=== PATIENT | male | born 1970 | race African-American/Black ===

== ENCOUNTER 2018-11-27 19:17 | Inpatient (IN) | payer OTHER ==
--- OUTSIDE RECORDS SUMMARY | 2018-11-27 19:19 | XMS REPORT | Clinical Summary ---
:1970 Author Organization [facility] Address [address] [place] [address] Care Team Providers Name Role Phone Bassam Marcos MD Primary Care Provider Allergies Active Allergy Reactions Severity Noted Date Comments No Known Drug Allergies 03/04/2016 Medications Medication Sig Dispensed Refills Start Date End Date Status amLODIPine (NORVASC) Take 10 mg by 0 Active 10 MG tablet mouth daily. aspirin (ECOTRIN) 81 Take 81 mg by 0 Active MG enteric coated mouth daily. tablet losartan-hydrochloroth Take 1 tablet by 0 Active iazide (HYZAAR) mouth daily. 100-12.5 mg per tablet clonIDINE HCl Take 0.2 mg by 0 Active (CATAPRES) 0.2 MG mouth daily. tablet labetalol (NORMODYNE) Take 200 mg by 0 Active 200 MG tablet mouth 2 (two) times a day. calcium acetate Take 667 mg by 0 Active (PHOSLO) 667 mg mouth 3 (three) capsule times a day with meals. Take 3 tabs with each meal Active Problems Problem Noted Date Hypertensive nephrosclerosis 03/17/2016 Social History Tobacco Use Types Packs/Day Years Used Date Former Smoker 1 Quit: 2016 Tobacco Cessation: Counseling Given: No Sex Assigned at Date Recorded Not on file Job Start Date Occupation Industry Not on file Not on file Not on file Travel History Travel Start Travel End No recent travel history available. Last Filed Vital Signs Not on file Plan of Treatment Health Maintenance Due Date Last Done Comments INFLUENZA VACCINE 05/16/2018 Results Not on fileafter 11/26/2017 Insurance Payer Benefit Plan / Group Subscriber ID Type Phone Address MEDICARE MEDICARE PART A AND B xxxxxxxxxx Medicare [place], [place]
--- OUTSIDE RECORDS SUMMARY | 2018-11-27 19:21 | XMS REPORT | Clinical Summary ---
:1970 Author Organization [facility] Address [address] [place] [address] Care Team Providers Name Role Phone Mo Knightfauzia Cardiology Julio Novak MD Gastroenterology Pcp, No Primary Care Provider Unavailable Allergies No Known Allergies Medications Medication Sig Dispensed Refills Start End Date Status Date carvedilol Take 25 mg by mouth 0 Active (COREG) 25 MG 2 (two) times daily tablet with breakfast and dinner. cloNIDine HCl Take 0.2 mg by 0 Active (CATAPRES) 0.2 MG mouth 3 (three) tablet times daily. amLODIPine Take 10 mg by mouth 0 Active (NORVASC) 10 MG daily. tablet calcium acetate Take 2,001 mg by 0 Active (PHOSLO) 667 mg mouth 3 (three) capsule times daily with meals . losartan (COZAAR) Take 100 mg by 0 Active 100 MG tablet mouth daily. aspirin 81 MG Take 1 tablet (81 90 tablet 3 11/09/19 Active chewable tablet mg total) by mouth 9 20 daily. atorvastatin Take 1 tablet (40 90 tablet 3 11/09/19 Active (LIPITOR) 40 MG mg total) by mouth 9 20 tablet nightly. hydrALAZINE Take 1 tablet (100 90 tablet 6 11/11/11/11/19 Active (APRESOLINE) 100 mg total) by mouth 9 20 MG tablet every 8 (eight) hours. clopidogrel Take 1 tablet (75 30 tablet 12 11/12/19 Active (PLAVIX) 75 mg mg total) by mouth 9 20 tablet daily. epoetin remi Inject 1 mL (10,000 1 mL 0 Active (EPOGEN,PROCRIT) Units total) 9 10,000 unit/mL subcutaneously 3 injection (three) times a week at bedtime. tamsulosin Take 1 capsule (0.4 30 capsule 1 Active (FLOMAX) 0.4 mg mg total) by mouth 9 Cap 24 hr capsule daily. valsartan Take 320 mg by 0 05/31/20 Discontinued (DIOVAN) 320 MG mouth daily. 18 tablet hydrALAZINE Take 50 mg by mouth 0 11/11/19 Discontinued (APRESOLINE) 50 3 (three) times 19 MG tablet daily. ticagrelor Take 1 tablet (90 60 tablet 3 11/09/19 Discontinued (BRILINTA) 90 mg mg total) by mouth 9 19 Tab tablet 2 (two) times daily. ticagrelor Take 1 tablet (90 60 tablet 0 11/09/19 Discontinued (BRILINTA) 90 mg mg total) by mouth 9 19 Tab tablet 2 (two) times daily. Active Problems Problem Noted Date End stage renal disease 11/08/2018 Abnormal liver diagnostic imaging 06/14/2018 Last Assessment & Plan: Recent imaging (CTA 05/17/18) showed concern for cirrhosis however inconclusive. He does not have significant risk factors for cirrhosis such as fatty liver, hepatitis exposure or extensive alcohol use. It is likely his marked ascites is from renal dysfunction however we must rule out liver etiology. Transjugular biopsy to be done as part of renal transplant workup will confirm diagnosis. Portal hypertension 05/31/2018 Last Assessment & Plan: Portal hypertension manifested by ascites. Essential hypertension, malignant 05/31/2018 Last Assessment & Plan: Patient has long standing systemic hypertension and is on multiple anti hypertensive medications. In patients with cirrhosis, with disease decompensation systemic hemodynamics change and develop low sys temic blood pressure. These patient require significant reduction or stopping of anti hypertensive medications I will recommend close monitoring of blood pressure. If systolic blood pressure < 120 consider change or holding anti hypertensive medications Pre-transplant evaluation for chronic kidney disease 03/06/2018 Last Assessment & Plan: Concern for cirrhosis. Liver biopsy today and comprehensive workup to rule out all causes of liver disease. ESRD (end stage renal disease) 03/06/2018 Last Assessment & Plan: Etiology from uncontrolled hypertension. He has been on dialysis since 2015 and is undergoing transplant workup. Encounters Date Type Specialty Care Team Description 11/16/2018 Telephone Transplant Estephania Gupta Kidney mirror maker Pre-evaluation 11/08/2018 Surgery Joel Langford, R & L CATH / CORONARY ANGIOS / PCI 11/08/2018 Hospital Encounter Cardiology Joel Langford, Abnormal liver diagnostic imaging; - MD ESRD (end stage renal disease) (HCC); 11/11/2018 Essential hypertension, malignant; Pre-transplant evaluation for chronic kidney disease; Anemia due to chronic kidney disease, on chronic dialysis (HCC); Coronary artery disease involving [place] coronary artery of [place] heart without angina pectoris; Bleeding; End stage renal disease (HCC); Status post insertion of drug-eluting stent into left anterior descending (LAD) artery for coronary artery disease; Presence of drug-eluting stent in left circumflex coronary artery; Pseudoaneurysm following procedure (HCC) 11/08/2018 Orders Only General Internal Medicine 10/18/2018 Hospital Encounter Cardiology Ariana, Pre-transplant evaluation for chronic kidney disease; Deepika Sharma II, ESRD (end stage renal disease) (HCC); Essential hypertension, malignant; Anemia of renal disease 09/24/2018 Orders Only Transplant Estephania Gupta, Pre-transplant evaluation for chronic kidney disease (Primary Dx); RN ESRD (end stage renal disease) (HCC); Essential hypertension, malignant; Anemia of renal disease 09/24/2018 Telephone Transplant Estephania Gupta Kidney mirror maker Pre-evaluation 09/19/2018 Telephone Transplant Bubba, Na Y Follow-up 08/03/2018 Telephone Transplant Estephania Gupta Kidney mirror maker Pre-evaluation 07/24/2018 Documentation Hepatology Regina Krishnamurthy MD 07/23/2018 Abstract Hepatology Juli Dominguez MA 07/05/2018 Hospital Encounter Regina Krishnamurthy Abnormal liver diagnostic imaging; MD Leda Cirrhosis of liver with ascites, unspecified hepatic cirrhosis type (HCC) 06/29/2018 Outside Orders [facility] Regina Krishnamurthy Scheduling MD Leda 06/14/2018 Office Visit Hepatology Regina Krishnamurthy Cirrhosis of liver with ascites, unspecified hepatic cirrhosis type (HCC) (Primary Dx); MD Leda Abnormal liver diagnostic imaging; ESRD (end stage renal disease) (HCC); Portal hypertension (HCC); Essential hypertension, malignant; Pre-transplant evaluation for chronic kidney disease 06/14/2018 Follow-Up Transplant Regina Krishnamurthy MD 06/14/2018 Evaluation Transplant Regina Krishnamurthy Pre-transplant MD Leda evaluation for chronic kidney disease (Primary Dx) 05/31/2018 Evaluation Transplant Nelson, Pre-transplant evaluation for chronic kidney disease (Primary Dx); Bhamidpauline ESRD (end stage renal disease) (HCC); MD Frantz Essential hypertension, malignant; Cirrhosis of liver with ascites, unspecified hepatic cirrhosis type ( HCC); Portal hypertension (HCC); Hyperlipidemia, unspecified hyperlipidemia type; Secondary hyperparathyroidism of renal origin (HCC) 05/17/2018 Hospital Encounter Cardiology Nelson, ESRD (end stage renal disease) (HCC); Bhamidpauline Pre-transplant evaluation for chronic kidney disease; MD Frantz Essential hypertension, malignant; Hyperlipidemia, unspecified hyperlipidemia type; Elevated blood sugar; Colon cancer screening 05/17/2018 Hospital Encounter Cardiology Nelson, ESRD (end stage renal disease) (HCC); Bhamidpauline Pre-transplant evaluation for chronic kidney disease; MD Frantz Essential hypertension, malignant; Hyperlipidemia, unspecified hyperlipidemia type; Elevated blood sugar; Colon cancer screening 05/17/2018 Hospital Encounter Radiology Nelson, ESRD (end stage renal disease) (HCC); Bhamidpauline Pre-transplant evaluation for chronic kidney disease; MD Frantz Essential hypertension, malignant; Hyperlipidemia, unspecified hyperlipidemia type; Elevated blood sugar; Colon cancer screening 05/17/2018 Hospital Encounter Radiology Nelson, ESRD (end stage renal disease) (HCC); Bhamidipamaite Pre-transplant evaluation for chronic kidney disease; MD Frantz Essential hypertension, malignant; Hyperlipidemia, unspecified hyperlipidemia type; Elevated blood sugar; Colon cancer screening 05/17/2018 Orders Only Lab Nelson, ESRD (end stage renal disease) (HCC); Bhamidpauline Pre-transplant evaluation for chronic kidney disease; MD Frantz Essential hypertension, malignant; Hyperlipidemia, unspecified hyperlipidemia type; Elevated blood sugar; Colon cancer screening 03/06/2018 Orders Only Transplant Nelson, ESRD (end stage renal disease) ( HCC); Hepatology Bhamidipamaite Pre-transplant evaluation for chronic kidney disease; MD Frantz Essential hypertension, malignant; Hyperlipidemia, unspecified hyperlipidemia type; Elevated blood sugar; Colon cancer screening 03/06/2018 Office Visit Transplant Nelson, ESRD (end stage renal disease) ( [facility]) (Primary Dx); Digna Pre-transplant evaluation for chronic kidney disease; MD Frantz Essential hypertension, malignant; Bertha Corral RN Hyperlipidemia, unspecified hyperlipidemia type; Elevated blood sugar; Colon cancer screening; ESRD (end stage renal disease) on dialysis ([facility]) 02/13/2018 Abstract Transplant Ryan Tillman 01/29/2018 Abstract Transplant Ryan Tillman 01/23/2018 Telephone Transplant Ryan Tillman Kidney Transplant Pre-evaluation 01/23/2018 Abstract Transplant Ryan Tillman after 11/26/2017 Family History Medical History Relation Name Comments Hypertension Father Heart disease Mother Unremarkable Sister Unremarkable Sister Relation Name Status Comments Father Alive Mother Sister Alive Sister Alive Social History Tobacco Use Types Packs/Day Years Used Date Current Some Day Smoker 0 20 Smokeless Tobacco: Never Used Comments: smokes half pack a week Alcohol Use Drinks/Week oz/Week Comments No 2014; occasional drink earlier to that Sex Assigned at Date Recorded Not on file Job Start Date Occupation Industry Not on file Not on file Not on file Travel History Travel Start Travel End No recent travel history available. Last Filed Vital Signs Vital Sign Reading Time Taken Blood Pressure 149/68 11/11/2018 11:35 AM INDUSTRIAL ORGANIZATIONAL PSYCHOLOGIST Pulse 71 11/11/2018 11:35 AM INDUSTRIAL ORGANIZATIONAL PSYCHOLOGIST Temperature 36.6 C (97.9 F) 11/11/2018 11:35 AM INDUSTRIAL ORGANIZATIONAL PSYCHOLOGIST Respiratory Rate 20 11/11/2018 11:35 AM INDUSTRIAL ORGANIZATIONAL PSYCHOLOGIST Oxygen Saturation 98% 11/11/2018 11:35 AM INDUSTRIAL ORGANIZATIONAL PSYCHOLOGIST Inhaled Oxygen Concentration 25% 11/10/2018 8:54 AM INDUSTRIAL ORGANIZATIONAL PSYCHOLOGIST Weight 97.2 kg (214 lb 5.7 oz) 11/11/2018 7:25 AM INDUSTRIAL ORGANIZATIONAL PSYCHOLOGIST Height 177.8 cm (5' 10") 11/08/2018 11:04 AM INDUSTRIAL ORGANIZATIONAL PSYCHOLOGIST Body Mass Index 30.76 11/11/2018 7:25 AM INDUSTRIAL ORGANIZATIONAL PSYCHOLOGIST Plan of Treatment Health Maintenance Due Date Last Done Comments INFLUENZA VACCINE 07/16/2018 Implants Implanted Type Area Interior Design Professional Device Shelf Model / Identifier Expiration Serial / Date Lot Synergy Otw Stent Left: BOSTON 04/29/2020 [id number] / Implanted: Qty: 1 on 11/08/2018 by Joel Langford MD [employer] / [id number] Synergy Otw Coronary Stent System Left: B[employer]ON 11/20/2018 [id number] / Implanted: Qty: 1 on 11/08/2018 by Joel Langford MD [employer] / Synergy Otw Coronary Stent System Left: B[employer]ON 04/24/2020 [id number] / Implanted: Qty: 1 on 11/08/2018 by Joel Langford MD [employer] / [id number] Synergy [place]ON 07/08/2020 [id number] / Implanted: Qty: 1 on 11/08/2018 by Joel Langford MD SCIENTIFIC / [id number] Procedures Procedure Name Priority Date/Time Associated Comments Diagnosis TRANSFUSION SERVICE 11/11/2018 5:51 REPORT - SCAN PM INDUSTRIAL ORGANIZATIONAL PSYCHOLOGIST CBC (HEMOGRAM ONLY) Routine 11/11/2018 4:27 Results for this AM INDUSTRIAL ORGANIZATIONAL PSYCHOLOGIST procedure are in the results section. BASIC METABOLIC PANEL Routine 11/11/2018 4:27 Results for this (7) AM INDUSTRIAL ORGANIZATIONAL PSYCHOLOGIST procedure are in the results section. HEMOGLOBIN AND Routine 11/10/2018 8:13 Results for this HEMATOCRIT PM INDUSTRIAL ORGANIZATIONAL PSYCHOLOGIST procedure are in the results section. ARTERIAL DOPPLER LEG, STAT 11/10/2018 1:14 Results for this RIGHT PM INDUSTRIAL ORGANIZATIONAL PSYCHOLOGIST procedure are in the results section. HEMOGLOBIN AND STAT 11/10/2018 12:35 Results for this HEMATOCRIT PM INDUSTRIAL ORGANIZATIONAL PSYCHOLOGIST procedure are in the results section. TYPE AND SCREEN, Routine 11/10/2018 6:26 Results for this AUTOMATED AM INDUSTRIAL ORGANIZATIONAL PSYCHOLOGIST procedure are in the results section. CBC (HEMOGRAM ONLY) Routine 11/10/2018 3:46 Results for this AM INDUSTRIAL ORGANIZATIONAL PSYCHOLOGIST procedure are in the results section. BASIC METABOLIC PANEL Routine 11/10/2018 3:46 Results for this (7) AM INDUSTRIAL ORGANIZATIONAL PSYCHOLOGIST procedure are in the results section. HEMODIALYSIS Routine 11/09/2018 5:17 Results for this INPATIENT PM INDUSTRIAL ORGANIZATIONAL PSYCHOLOGIST procedure are in the results section. HEPATITIS B SURFACE Routine 11/09/2018 2:49 Results for this ANTIGEN PM INDUSTRIAL ORGANIZATIONAL PSYCHOLOGIST procedure are in the results section. VENOUS DOPPLER LEG, STAT 11/09/2018 10:25 Results for this RIGHT AM INDUSTRIAL ORGANIZATIONAL PSYCHOLOGIST procedure are in the results section. PFA-100 Routine 11/09/2018 9:33 Results for this AM INDUSTRIAL ORGANIZATIONAL PSYCHOLOGIST procedure are in the results section. CBC (HEMOGRAM ONLY) Routine 11/09/2018 5:19 Results for this AM INDUSTRIAL ORGANIZATIONAL PSYCHOLOGIST procedure are in the results section. BASIC METABOLIC PANEL Routine 11/09/2018 5:19 Results for this (7) AM INDUSTRIAL ORGANIZATIONAL PSYCHOLOGIST procedure are in the results section. POCT-ACT Routine 11/08/2018 4:32 Results for this PM INDUSTRIAL ORGANIZATIONAL PSYCHOLOGIST procedure are in the results section. R & L CATH / CORONARY 11/08/2018 3:19 End stage renal ANGIOS / PCI PM INDUSTRIAL ORGANIZATIONAL PSYCHOLOGIST disease (HCC) Case Notes POP6 ECG 12-LEAD Routine 11/08/2018 12:21 PM INDUSTRIAL ORGANIZATIONAL PSYCHOLOGIST Procedure Note - Interface, External Ris In - 11/08/2018 1:11 PM INDUSTRIAL ORGANIZATIONAL PSYCHOLOGIST Ventricular Rate 57 BPM Atrial Rate 57 BPM P-R Interval 160 ms QRS Duration 104 ms Q-T Interval 454 ms QTC Calculation(Bazett) 441 ms P [place] 69 degrees R [place] 66 degrees T [place] 40 degrees Sinus bradycardia Minimal voltage criteria for LVH, may be normal variant Borderline ECG When compared with ECG of 17-MAY-2018 08:22, No significant change was found ECG 12-LEAD Routine 11/08/2018 12:21 Results for PM INDUSTRIAL ORGANIZATIONAL PSYCHOLOGIST this procedure are in the results section. CBC W/PLT COUNT & AUTO Routine 11/08/2018 11:40 Results for DIFFERENTIAL AM INDUSTRIAL ORGANIZATIONAL PSYCHOLOGIST this procedure are in the results section. PT/APTT Routine 11/08/2018 11:40 Results for AM INDUSTRIAL ORGANIZATIONAL PSYCHOLOGIST this procedure are in the results section. CBC W/PLT COUNT & AUTO Routine 11/08/2018 11:40 Results for DIFFERENTIAL AM INDUSTRIAL ORGANIZATIONAL PSYCHOLOGIST this procedure are in the results section. BASIC METABOLIC PANEL Routine 11/08/2018 11:40 Results for (7) AM INDUSTRIAL ORGANIZATIONAL PSYCHOLOGIST this procedure are in the results section. ECHOCARDIOGRAM REPORT 10/18/2018 6:20 - SCAN PM INDUSTRIAL ORGANIZATIONAL PSYCHOLOGIST 2D ECHO W/ DOPPLER Routine 10/18/2018 11:41 Pre-transplant Results for (CW/PW/COLOR) AM INDUSTRIAL ORGANIZATIONAL PSYCHOLOGIST evaluation for this procedure chronic kidney are in the disease results ESRD (end stage section. renal disease) (HCC) Essential hypertension, malignant Anemia of renal disease OCCULT BLOOD, STOOL Routine 10/18/2018 11:12 Pre-transplant Results for AM INDUSTRIAL ORGANIZATIONAL PSYCHOLOGIST evaluation for this procedure chronic kidney are in the disease results ESRD (end stage section. renal disease) (HCC) Essential hypertension, malignant Anemia of renal disease OCCULT BLOOD, STOOL Routine 10/18/2018 11:12 Pre-transplant Results for AM INDUSTRIAL ORGANIZATIONAL PSYCHOLOGIST evaluation for this procedure chronic kidney are in the disease results ESRD (end stage section. renal disease) (HCC) Essential hypertension, malignant Anemia of renal disease TISSUE EXAM AP Routine 07/05/2018 4:20 Results for PM CDT this procedure are in the results section. IR TRANSCATHETER Routine 07/05/2018 1:23 Abnormal liver Results for BIOSPY OF KIDNEY/LIVER PM CDT diagnostic imaging this procedure Cirrhosis of liver are in the with ascites, results unspecified hepatic section. cirrhosis type (HCC) COMPREHENSIVE STAT 07/05/2018 9:54 Results for METABOLIC PANEL AM CDT this procedure are in the results section. PLATELET COUNT STAT 07/05/2018 9:54 Results for AM CDT this procedure are in the results section. APTT STAT 07/05/2018 9:54 Results for AM CDT this procedure are in the results section. PROTHROMBIN TIME/INR STAT 07/05/2018 9:54 Results for AM CDT this procedure are in the results section. CBC W/PLT COUNT & AUTO Routine 06/14/2018 2:46 Abnormal liver Results for DIFFERENTIAL PM CDT diagnostic imaging this procedure Cirrhosis of liver are in the with ascites, results unspecified hepatic section. cirrhosis type (HCC) CBC W/PLT COUNT & AUTO Routine 06/14/2018 2:46 Abnormal liver Results for DIFFERENTIAL PM CDT diagnostic imaging this procedure Cirrhosis of liver are in the with ascites, results unspecified hepatic section. cirrhosis type (HCC) MITOCHONDRIA M2 Routine 06/14/2018 2:45 Abnormal liver Results for ANTIBODY (IGG) PM CDT diagnostic imaging this procedure Cirrhosis of liver are in the with ascites, results unspecified hepatic section. cirrhosis type (HCC) ACTIN (SMOOTH MUSCLE) Routine 06/14/2018 2:45 Abnormal liver Results for ANTIBODY, IGG PM CDT diagnostic imaging this procedure Cirrhosis of liver are in the with ascites, results unspecified hepatic section. cirrhosis type (HCC) ANTI-NUCLEAR ANTIBODY Routine 06/14/2018 2:45 Abnormal liver Results for (AZIZA) PM CDT diagnostic imaging this procedure Cirrhosis of liver are in the with ascites, results unspecified hepatic section. cirrhosis type (HCC) CERULOPLASMIN Routine 06/14/2018 2:45 Abnormal liver Results for PM CDT diagnostic imaging this procedure Cirrhosis of liver are in the with ascites, results unspecified hepatic section. cirrhosis type (HCC) [id number]\\, Routine 06/14/2018 2:45 Abnormal liver Results for SERUM PM CDT diagnostic imaging this procedure Cirrhosis of liver are in the with ascites, results unspecified hepatic section. cirrhosis type (HCC) FERRITIN Routine 06/14/2018 2:45 Abnormal liver Results for PM CDT diagnostic imaging this procedure Cirrhosis of liver are in the with ascites, results unspecified hepatic section. cirrhosis type (HCC) IRON, TIBC, % SAT. Routine 06/14/2018 2:45 Abnormal liver Results for (WITHOUT FERRITIN) PM CDT diagnostic imaging this procedure Cirrhosis of liver are in the with ascites, results unspecified hepatic section. cirrhosis type (HCC) HEPATITIS B CORE Routine 06/14/2018 2:45 Abnormal liver Results for ANTIBODY, TOTAL PM CDT diagnostic imaging this procedure Cirrhosis of liver are in the with ascites, results unspecified hepatic section. cirrhosis type (HCC) HEPATITIS A ANTIBODY, Routine 06/14/2018 2:45 Abnormal liver Results for IGG PM CDT diagnostic imaging this procedure Cirrhosis of liver are in the with ascites, results unspecified hepatic section. cirrhosis type (HCC) BILIRUBIN, DIRECT Routine 06/14/2018 2:45 Abnormal liver Results for PM CDT diagnostic imaging this procedure Cirrhosis of liver are in the with ascites, results unspecified hepatic section. cirrhosis type (HCC) COMPREHENSIVE Routine 06/14/2018 2:45 Abnormal liver Results for METABOLIC PANEL PM CDT diagnostic imaging this procedure Cirrhosis of liver are in the with ascites, results unspecified hepatic section. cirrhosis type (HCC) TRANSFUSION SERVICE 05/18/2018 6:03 REPORT - SCAN PM CDT PERIPHERAL VASCULAR 05/17/2018 1:50 REPORT - SCAN PM CDT ECHOCARDIOGRAM REPORT 05/17/2018 1:20 - SCAN PM CDT STRESS ECHO WITH Routine 05/17/2018 9:25 ESRD (end stage Results for CONTRAST & TRACING AM CDT renal disease) (HCC) this procedure Pre-transplant are in the evaluation for results chronic kidney section. disease Essential hypertension, malignant Hyperlipidemia, unspecified hyperlipidemia type Elevated blood sugar Colon cancer screening 2D ECHO W/ DOPPLER Routine 05/17/2018 8:30 ESRD (end stage Results for (CW/PW/COLOR) AM CDT renal disease) (HCC) this procedure Pre-transplant are in the evaluation for results chronic kidney section. disease Essential hypertension, malignant Hyperlipidemia, unspecified hyperlipidemia type Elevated blood sugar Colon cancer screening ECG 12-LEAD Routine 05/17/2018 8:22 ESRD (end stage Results for AM CDT renal disease) (HCC) this procedure Pre-transplant are in the evaluation for results chronic kidney section. disease Essential hypertension, malignant Hyperlipidemia, unspecified hyperlipidemia type Elevated blood sugar Colon cancer screening CT/CTA ABDOMEN & Routine 05/17/2018 7:54 ESRD (end stage Results for PELVIS AM CDT renal disease) ([facility]) this procedure Pre-transplant are in the evaluation for results chronic kidney section. disease Essential hypertension, malignant Hyperlipidemia, unspecified hyperlipidemia type Elevated blood sugar Colon cancer screening XR CHEST 2 VIEWS Routine 05/17/2018 6:53 ESRD (end stage Results for AM CDT renal disease) ([facility]) this procedure Pre-transplant are in the evaluation for results chronic kidney section. disease Essential hypertension, malignant Hyperlipidemia, unspecified hyperlipidemia type Elevated blood sugar Colon cancer screening CBC W/PLT COUNT & AUTO Routine 05/17/2018 6:28 ESRD (end stage Results for DIFFERENTIAL AM CDT renal disease) ([facility]) this procedure Pre-transplant are in the evaluation for results chronic kidney section. disease Essential hypertension, malignant Hyperlipidemia, unspecified hyperlipidemia type Elevated blood sugar Colon cancer screening DIRECT AHG Routine 05/17/2018 6:28 ESRD (end stage Results for (KOLBY)/DIRECT ALTON AM CDT renal disease) ([facility]) this procedure Pre-transplant are in the evaluation for results chronic kidney section. disease Essential hypertension, malignant Hyperlipidemia, unspecified hyperlipidemia type Elevated blood sugar Colon cancer screening BLOOD TYPING, Routine 05/17/2018 6:28 ESRD (end stage Results for AUTOMATED AM CDT renal disease) ([facility]) this procedure Pre-transplant are in the evaluation for results chronic kidney section. disease Essential hypertension, malignant Hyperlipidemia, unspecified hyperlipidemia type Elevated blood sugar Colon cancer screening PSA Routine 05/17/2018 6:28 ESRD (end stage Results for AM CDT renal disease) ([facility]) this procedure Pre-transplant are in the evaluation for results chronic kidney section. disease Essential hypertension, malignant Hyperlipidemia, unspecified hyperlipidemia type Elevated blood sugar Colon cancer screening VARICELLA ZOSTER Routine 05/17/2018 6:28 ESRD (end stage Results for ANTIBODY, IGG AM CDT renal disease) ([facility]) this procedure Pre-transplant are in the evaluation for results chronic kidney section. disease Essential hypertension, malignant Hyperlipidemia, unspecified hyperlipidemia type Elevated blood sugar Colon cancer screening URIC ACID Routine 05/17/2018 6:28 ESRD (end stage Results for AM CDT renal disease) ([facility]) this procedure Pre-transplant are in the evaluation for results chronic kidney section. disease Essential hypertension, malignant Hyperlipidemia, unspecified hyperlipidemia type Elevated blood sugar Colon cancer screening T SPOT TB Routine 05/17/2018 6:28 ESRD (end stage Results for AM CDT renal disease) (HCC) this procedure Pre-transplant are in the evaluation for results chronic kidney section. disease Essential hypertension, malignant Hyperlipidemia, unspecified hyperlipidemia type Elevated blood sugar Colon cancer screening RPR Routine 05/17/2018 6:28 ESRD (end stage Results for AM CDT renal disease) (HCC) this procedure Pre-transplant are in the evaluation for results chronic kidney section. disease Essential hypertension, malignant Hyperlipidemia, unspecified hyperlipidemia type Elevated blood sugar Colon cancer screening PT/APTT Routine 05/17/2018 6:28 ESRD (end stage Results for AM CDT renal disease) (HCC) this procedure Pre-transplant are in the evaluation for results chronic kidney section. disease Essential hypertension, malignant Hyperlipidemia, unspecified hyperlipidemia type Elevated blood sugar Colon cancer screening PTH, INTACT Routine 05/17/2018 6:28 ESRD (end stage Results for AM CDT renal disease) ([facility]) this procedure Pre-transplant are in the evaluation for results chronic kidney section. disease Essential hypertension, malignant Hyperlipidemia, unspecified hyperlipidemia type Elevated blood sugar Colon cancer screening PHOSPHORUS Routine 05/17/2018 6:28 ESRD (end stage Results for AM CDT renal disease) (HCC) this procedure Pre-transplant are in the evaluation for results chronic kidney section. disease Essential hypertension, malignant Hyperlipidemia, unspecified hyperlipidemia type Elevated blood sugar Colon cancer screening LACTATE DEHYDROGENASE Routine 05/17/2018 6:28 ESRD (end stage Results for (LDH) AM CDT renal disease) (HCC) this procedure Pre-transplant are in the evaluation for results chronic kidney section. disease Essential hypertension, malignant Hyperlipidemia, unspecified hyperlipidemia type Elevated blood sugar Colon cancer screening HIV-1 ANTIGEN WITH Routine 05/17/2018 6:28 ESRD (end stage Results for HIV-1/2 ANTIBODY AM CDT renal disease) (HCC) this procedure Pre-transplant are in the evaluation for results chronic kidney section. disease Essential hypertension, malignant Hyperlipidemia, unspecified hyperlipidemia type Elevated blood sugar Colon cancer screening HEPATITIS C ANTIBODY Routine 05/17/2018 6:28 ESRD (end stage Results for AM CDT renal disease) (HCC) this procedure Pre-transplant are in the evaluation for results chronic kidney section. disease Essential hypertension, malignant Hyperlipidemia, unspecified hyperlipidemia type Elevated blood sugar Colon cancer screening HEPATITIS B CORE Routine 05/17/2018 6:28 ESRD (end stage Results for ANTIBODY, IGM AM CDT renal disease) (HCC) this procedure Pre-transplant are in the evaluation for results chronic kidney section. disease Essential hypertension, malignant Hyperlipidemia, unspecified hyperlipidemia type Elevated blood sugar Colon cancer screening HEPATITIS B SURFACE Routine 05/17/2018 6:28 ESRD (end stage Results for ANTIGEN AM CDT renal disease) (HCC) this procedure Pre-transplant are in the evaluation for results chronic kidney section. disease Essential hypertension, malignant Hyperlipidemia, unspecified hyperlipidemia type Elevated blood sugar Colon cancer screening HEPATITIS B SURFACE Routine 05/17/2018 6:28 ESRD (end stage Results for ANTIBODY AM CDT renal disease) (HCC) this procedure Pre-transplant are in the evaluation for results chronic kidney section. disease Essential hypertension, malignant Hyperlipidemia, unspecified hyperlipidemia type Elevated blood sugar Colon cancer screening GAMMA GLUTAMYL Routine 05/17/2018 6:28 ESRD (end stage Results for TRANSFERASE (GGT) AM CDT renal disease) (HCC) this procedure Pre-transplant are in the evaluation for results chronic kidney section. disease Essential hypertension, malignant Hyperlipidemia, unspecified hyperlipidemia type Elevated blood sugar Colon cancer screening EBV ANTIBODY, IGM Routine 05/17/2018 6:28 ESRD (end stage Results for AM CDT renal disease) (HCC) this procedure Pre-transplant are in the evaluation for results chronic kidney section. disease Essential hypertension, malignant Hyperlipidemia, unspecified hyperlipidemia type Elevated blood sugar Colon cancer screening EBV ANTIBODY, IGG Routine 05/17/2018 6:28 ESRD (end stage Results for AM CDT renal disease) (HCC) this procedure Pre-transplant are in the evaluation for results chronic kidney section. disease Essential hypertension, malignant Hyperlipidemia, unspecified hyperlipidemia type Elevated blood sugar Colon cancer screening COMPREHENSIVE Routine 05/17/2018 6:28 ESRD (end stage Results for METABOLIC PANEL AM CDT renal disease) (HCC) this procedure Pre-transplant are in the evaluation for results chronic kidney section. disease Essential hypertension, malignant Hyperlipidemia, unspecified hyperlipidemia type Elevated blood sugar Colon cancer screening CYTOMEGALOVIRUS Routine 05/17/2018 6:28 ESRD (end stage Results for ANTIBODY, IGM AM CDT renal disease) (HCC) this procedure Pre-transplant are in the evaluation for results chronic kidney section. disease Essential hypertension, malignant Hyperlipidemia, unspecified hyperlipidemia type Elevated blood sugar Colon cancer screening CYTOMEGALOVIRUS Routine 05/17/2018 6:28 ESRD (end stage Results for ANTIBODY, IGG AM CDT renal disease) ([facility]) this procedure Pre-transplant are in the evaluation for results chronic kidney section. disease Essential hypertension, malignant Hyperlipidemia, unspecified hyperlipidemia type Elevated blood sugar Colon cancer screening CBC W/PLT COUNT & AUTO Routine 05/17/2018 6:28 ESRD (end stage Results for DIFFERENTIAL AM CDT renal disease) ([facility]) this procedure Pre-transplant are in the evaluation for results chronic kidney section. disease Essential hypertension, malignant Hyperlipidemia, unspecified hyperlipidemia type Elevated blood sugar Colon cancer screening HEMOGLOBIN A1C Routine 05/17/2018 6:28 ESRD (end stage Results for AM CDT renal disease) (HCC) this procedure Pre-transplant are in the evaluation for results chronic kidney section. disease Essential hypertension, malignant Hyperlipidemia, unspecified hyperlipidemia type Elevated blood sugar Colon cancer screening LIPID PANEL Routine 05/17/2018 6:28 ESRD (end stage Results for AM CDT renal disease) ([facility]) this procedure Pre-transplant are in the evaluation for results chronic kidney section. disease Essential hypertension, malignant Hyperlipidemia, unspecified hyperlipidemia type Elevated blood sugar Colon cancer screening HLA TYPING CI Routine 05/17/2018 6:28 ESRD (end stage Results for AM CDT renal disease) ([facility]) this procedure Pre-transplant are in the evaluation for results chronic kidney section. disease Essential hypertension, malignant Hyperlipidemia, unspecified hyperlipidemia type Elevated blood sugar Colon cancer screening HLA TYPING CII Routine 05/17/2018 6:28 ESRD (end stage Results for AM CDT renal disease) (HCC) this procedure Pre-transplant are in the evaluation for results chronic kidney section. disease Essential hypertension, malignant Hyperlipidemia, unspecified hyperlipidemia type Elevated blood sugar Colon cancer screening FLOW PRA CLASS I WITH Routine 05/17/2018 6:28 ESRD (end stage Results for REFLEX TO ANTIBODY AM CDT renal disease) ([facility]) this procedure SPECIFICITY Pre-transplant are in the evaluation for results chronic kidney section. disease Essential hypertension, malignant Hyperlipidemia, unspecified hyperlipidemia type Elevated blood sugar Colon cancer screening FLOW PRA CLASS II WITH Routine 05/17/2018 6:28 ESRD (end stage Results for REFLEX TO ANTIBODY AM CDT renal disease) ([facility]) this procedure SPECIFICITY Pre-transplant are in the evaluation for results chronic kidney section. disease Essential hypertension, malignant Hyperlipidemia, unspecified hyperlipidemia type Elevated blood sugar Colon cancer screening TRANSFUSION SERVICE 03/07/2018 5:47 REPORT - SCAN PM CDT TYPE AND SCREEN, Routine 03/06/2018 11:44 ESRD (end stage Results for AUTOMATED AM CDT renal disease) (HCC) this procedure Pre-transplant are in the evaluation for results chronic kidney section. disease Essential hypertension, malignant Hyperlipidemia, unspecified hyperlipidemia type Elevated blood sugar Colon cancer screening after 11/26/2017 Results TRANSFUSION SERVICE REPORT - SCAN (11/11/2018 5:51 PM INDUSTRIAL ORGANIZATIONAL PSYCHOLOGIST)Only the most recent of3 resultswithin the time period is included. Narrative Performed At CBC (Hemogram only) (11/11/2018 4:27 AM INDUSTRIAL ORGANIZATIONAL PSYCHOLOGIST)Only the most recent of3 resultswithin the time period is included. WBC 7.7 3.5 - 10.5 K/L [facility] RBC 2.68 (L) 4.63 - 6.08 M/L [facility] Hemoglobin 6.2 (L) 13.7 - 17.5 GM/DL [facility] Hematocrit 19.2 (L) 40.1 - 51.0 % [facility] MCV 71.6 (L) 79.0 - 92.2 fL [facility] MCH 23.1 (L) 25.7 - 32.2 pg [facility] MCHC 32.3 32.3 - 36.5 GM/DL [facility] RDW 19.1 (H) 11.6 - 14.4 % [facility] Platelets 181 150 - 450 K/CU MM [facility] MPV 11.3 9.4 - 12.4 fL [facility] nRBC 0 0 - 0 /100 WBC [facility] Specimen Blood - Arm, Right Performing Organization Address City/State/Zipcode Phone Number [facility] [address] [place] [address] [phone] CENTER Basic metabolic panel (11/11/2018 4:27 AM INDUSTRIAL ORGANIZATIONAL PSYCHOLOGIST)Only the most recent of4 resultswithin the time period is included. Sodium 136 136 - 145 meq/L [facility] Potassium 4.9 3.5 - 5.1 meq/L [facility] Chloride 98 98 - 107 meq/L [facility] CO2 28 22 - 29 meq/L [facility] BUN 47 (H) 7 - 21 mg/dL [facility] Creatinine 10.88 (H) 0.57 - 1.25 mg/dL [facility] Glucose 81 70 - 105 mg/dL [facility] Calcium 9.3 8.4 - 10.2 mg/dL [facility] EGFR 6Comment: ESTIMATED GFR IS mL/min/1.73 sq m [facility] NOT ACCURATE CREATININE [facility] CLEARANCE IN PREDICTING GLOMERULAR FILTRATION RATE. ESTIMATED GFR IS NOT APPLICABLE FOR DIALYSIS PATIENTS. Specimen Blood - Arm, Right Performing Organization Address City/[facility] Phone Number [facility] [address] [place] [phone] CENTER Hemoglobin and hematocrit (11/10/2018 8:13 PM INDUSTRIAL ORGANIZATIONAL PSYCHOLOGIST)Only the most recent of2 resultswithin the time period is included. Hemoglobin 6.8 (L) 13.7 - 17.5 GM/DL [facility] Hematocrit 21.5 (L) 40.1 - 51.0 % [facility] Specimen Blood - Arm, Right Performing Organization Address City/[facility] Centerconm Phone Number [facility] [address] [place] [address] CENTER Arterial doppler leg, right (11/10/2018 1:14 PM INDUSTRIAL ORGANIZATIONAL PSYCHOLOGIST) Ejection Fraction [facility] CPACS Impressions Performed At Right Impression [facility] CPACS 1. There is no pseudoaneurysm visualized. 2. There is no hematoma visualized. 3. There is no venous obstruction or arteriovenous fistula visualized. 4. The common femoral artery flow is triphasic with a velocity of 150 cm/sec. (within normal range). Conclusions Summary Duplex imaging of the right groin area was performed. The vessels were adequately visualized. There was no evidence of a pseudoaneurysm, venous obstruction or arteriovenous fistula in the right groin area. Signature Velocities are measured in cm/s ; Diameters are measured in cm Narrative Performed At PV LAB - Pseudoaneurysm Survey [facility] Demographics Patient Name Eric CLEMENT of Study11/10/2018 AZRA [id number] Age48 Visit Number [id number] Gender Male Accession Number [id number] Date of Birth1970 [facility] [id number] Physician SonographerHeather Davey Interpreting MD Tyrese Estrada, TPhysician Benito Bryan Pascual Procedure Type of Study: Pseudoaneurysm: PSEUDOANEURYSM, GROIN DOPPLER RIGHT. Indications for Study:Concern for AV fistula . Patient Status:STAT. Study Location:Portable. Technical Quality:Adequate visualization. Risk Factors History of Disease + +----+--------- + !Diagnosis !Date!Comments ! + +----+--------- + !History/Risk Factors: !!ESRD, HTN, CAD:PCI! + +----+--------- + Procedure Note Interface, External Ris In - 11/11/2018 9:50 AM INDUSTRIAL ORGANIZATIONAL PSYCHOLOGIST [facility] - Pseudoaneurysm Survey Demographics Patient Name BREANNE CLEMENT Date of Study 11/10/2018 AZRA Age 48 Visit Number [id number] Gender Male Accession Number [id number] Date of 1970 Referring Anastasiya Maldonado MD Room Number C628 Physician Computer Network Specialist Ruth Mariscal Interpreting MD Tyrese Estrada, T Physician Benito Pascual Procedure Type of Study: Pseudoaneurysm: PSEUDOANEURYSM, GROIN DOPPLER RIGHT. Indications for Study:Concern for AV fistula . Patient Status:STAT. Study Location:Portable. Technical Quality:Adequate visualization. Risk Factors History of Disease + +----+ + !Diagnosis !Date!Comments ! + +----+ + !History/Risk Factors: ! !ESRD, HTN, CAD:PCI ! + +----+ + Impressions Right Impression 1. There is no pseudoaneurysm visualized. 2. There is no hematoma visualized. 3. There is no venous obstruction or arteriovenous fistula visualized. 4. The common femoral artery flow is triphasic with a velocity of 150 cm/sec. (within normal range). Conclusions Summary Duplex imaging of the right groin area was performed. The vessels were adequately visualized. There was no evidence of a pseudoaneurysm, venous obstruction or arteriovenous fistula in the right groin area. Signature Velocities are measured in cm/s ; Diameters are measured in cm Performing Organization Address City/[facility] Cent[facility]ode Phone Number [facility] Type and screen, automated (11/10/2018 6:26 AM INDUSTRIAL ORGANIZATIONAL PSYCHOLOGIST)Only the most recent of2 resultswithin the time period is included. ABO/RH AUTOMATED ([place]) A POSITIVE [facility] Ab Scrn NEGATIVE [facility] Specimen Blood Performing Organization Address City/[facility]/Zipcode Phone Number [facility] [address] [place] [address] HEMODIALYSIS INPATIENT (11/09/2018 5:17 PM INDUSTRIAL ORGANIZATIONAL PSYCHOLOGIST) Narrative Performed At Pete Goldberg III, MD 11/09/20185:17 PM [facility] 11/09/2018 I have personally seen and examined Breanne Clement on hemodialysis Indication :ESRD Prescription: F160, 3-4 hrs, 2.0K, 2.5 Ca, UF 2-3 L as gale Reason for exam: BP fluctuation & adjust dry weight Tolerating dialysis ok Pete Goldebrg III, MD 11/09/2018 5:17 PM Hepatitis B surface antigen (11/09/2018 2:49 PM INDUSTRIAL ORGANIZATIONAL PSYCHOLOGIST)Only the most recent of2 resultswithin the time period is included. hepatitis B Surface Ag NON-REACTIVE Nonreactive [facility] Specimen Blood - Arm, Left Narrative Performed At For chronic HD patients, draw HBsAg with each [facility] admission then every 30 days. Performing Organization Address City/State/Zipcode Phone Number [place] [phone] [place] [address] [phone] CENTER Venous doppler leg, right (11/09/2018 10:25 AM INDUSTRIAL ORGANIZATIONAL PSYCHOLOGIST) Ejection Fraction [facility] CPACS Impressions Performed At Right Impression [facility] CPACS 1. There is no deep venous obstruction in the common femoral, profunda femoral, femoral, popliteal, posterior tibial or peroneal veins. 2. There is no superficial venous obstruction in the great saphenous vein. 3. There is no hematoma visualized. Left Impression 1. Not ordered. Conclusions Summary Venous duplex imaging and compression of the right lower extremity was performed. The veins were adequately visualized. The right venous system was patent and compressible with no evidence of thrombus. The venous Doppler waveforms were phasic with respiration. Signature Velocities are measured in cm/s ; Diameters are measured in cm Narrative Performed At PV LAB - Lower Extremities DVT Study [facility] Demographics Patient Name BREANNE CLEMENTDate of Study11/09/2018 AZRA [id number] Age48 Visit Number [id number] Gender Male Accession Number [id number] Date of Birth1970 [facility] [address]86 Physician SonographerOlya Roth Interpreting Callie Denny RN, RVTPdaniela RIVERA Procedure Type of Study: Veins: Lower Extremities DVT Study, VENOUS DOPPLER LEG, RIGHT. Indications for Study:Venous sheath oozing. Make sure no underlying hematoma.. Patient Status:STAT. Study Location:Vascular Lab. Technical Quality:Adequate visualization. Risk Factors History of Disease + +----+--------- + !Diagnosis !Date!Comments ! + +----+--------- + !History/Risk Factors: !!ESRD, HTN, CAD:PCI! + +----+--------- + Procedure Note Interface, External Ris In - 11/10/2018 10:37 AM [facility] PV LAB - Lower Extremities DVT Study Demographics Patient Name BREANNE CLEMENT Date of Study 11/09/2018 AZRA Age 48 Visit Number [id number] Gender Male Accession Number [id number] Date of 1970 Referring LIZZ CLEMENTS Room Number C628 Physician Computer Network Specialist Olya Roth Interpreting Callie Denny RN, RVT Physician Procedure Type of Study: Veins: Lower Extremities DVT Study, VENOUS DOPPLER LEG, RIGHT. Indications for Study:Venous sheath oozing. Make sure no underlying hematoma.. Patient Status:STAT. Study Location:Vascular Lab. Technical Quality:Adequate visualization. Risk Factors History of Disease + +----+ + !Diagnosis !Date!Comments ! + +----+ + !History/Risk Factors: ! !ESRD, HTN, CAD:PCI ! + +----+ + Impressions Right Impression 1. There is no deep venous obstruction in the common femoral, profunda femoral, femoral, popliteal, posterior tibial or peroneal veins. 2. There is no superficial venous obstruction in the great saphenous vein. 3. There is no hematoma visualized. Left Impression 1. Not ordered. Conclusions Summary Venous duplex imaging and compression of the right lower extremity was performed. The veins were adequately visualized. The right venous system was patent and compressible with no evidence of thrombus. The venous Doppler waveforms were phasic with respiration. Signature Velocities are measured in cm/s ; Diameters are measured in cm Performing Organization Address [facility] Centercode Phone Number [facility] CPACS [id number] (11/09/2018 9:33 AM INDUSTRIAL ORGANIZATIONAL PSYCHOLOGIST) COL/EPI Closure Time >294 (H) 78 - 191 Seconds [facility] COL/ADP Closure Time >300 (H) 43 - 122 Seconds [facility] Platelets 200 150 - 450 K/CU MM [facility] Specimen Blood Narrative Performed At Hematocrit <35% or platelet count <150,000/CU [facility] MM may contribute to falsely elevated PFA-100. Performing Organization Address [facility] Phone Number [address] [address] [place] POC ACTIVATED CLOTTING TIME (11/08/2018 4:32 PM INDUSTRIAL ORGANIZATIONAL PSYCHOLOGIST) Activated Clotting Time 301Comment: TESTED AT sec [address] [address] Specimen Blood Performing Organization Address [facility] Phone Number [address] [address] [phone] [place] ECG 12 lead (11/08/2018 12:21 PM INDUSTRIAL ORGANIZATIONAL PSYCHOLOGIST)Only the most recent of2 resultswithin the time period is included. Narrative Performed At Ventricular Rate 57 BPM GE MUSE Atrial Rate 57 BPM P-R Interval 160 ms QRS Duration 104 ms Q-T Interval 454 ms QTC Calculation(Bazett) 441 ms P [place] 69 degrees R [place] 66 degrees T [place] 40 degrees Sinus bradycardia Minimal voltage criteria for LVH, may be normal variant Borderline ECG When compared with ECG of 17-MAY-2018 08:22, No significant change was found Confirmed by John Persaud ([id number]) on 11/08/2018 4:21:08 PM Procedure Note Interface, External Ris In - 11/08/2018 6:06 PM INDUSTRIAL ORGANIZATIONAL PSYCHOLOGIST Ventricular Rate 57 BPM Atrial Rate 57 BPM P-R Interval 160 ms QRS Duration 104 ms Q-T Interval 454 ms QTC Calculation(Bazett) 441 ms P [place] 69 degrees R [place] 66 degrees T [place] 40 degrees Sinus bradycardia Minimal voltage criteria for LVH, may be normal variant Borderline ECG When compared with ECG of 17-MAY-2018 08:22, No significant change was found Confirmed by John Persaud ([id number]) on 11/08/2018 4:21:08 PM Performing Organization Address City/[facility] Cent[facility]ode Phone Number GE MUSE PT/aPTT (11/08/2018 11:40 AM INDUSTRIAL ORGANIZATIONAL PSYCHOLOGIST)Only the most recent of2 resultswithin the time period is included. Protime 16.1 (H) 11.7 - 14.7 seconds [facility] INR 1.3 <=5.9 [facility] PTT 38.0 (H) 22.5 - 36.0 seconds [facility] Specimen Blood Narrative Performed At RECOMMENDED COUMADIN/WARFARIN INR THERAPY [facility] RANGES STANDARD DOSE: 2.0 - 3.0 Includes: PROPHYLAXIS for venous thrombosis, systemic embolization; TREATMENT for venous thrombosis and/or pulmonary embolus. HIGH RISK: Target INR is 2.5-3.5 for patients with mechanical heart valves. Performing Organization Address City/[facility]/Zipcode Phone Number [facility] [address] [place] [address] [phone] CENTER CBC with platelet count + automated diff (11/08/2018 11:40 AM INDUSTRIAL ORGANIZATIONAL PSYCHOLOGIST)Only the most recent of3 resultswithin the time period is included. WBC 6.5 3.5 - 10.5 K/L [facility] RBC 4.17 (L) 4.63 - 6.08 M/L [facility] Hemoglobin 9.5 (L) 13.7 - 17.5 GM/DL [facility] Hematocrit 29.2 (L) 40.1 - 51.0 % [facility] MCV 70.0 (L) 79.0 - 92.2 fL [facility] MCH 22.8 (L) 25.7 - 32.2 pg [facility] MCHC 32.5 32.3 - 36.5 GM/DL [facility] RDW 18.3 (H) 11.6 - 14.4 % [facility] Platelets 199 150 - 450 K/CU MM [facility] MPV 10.1 9.4 - 12.4 fL [facility] nRBC 0 0 - 0 /100 WBC [facility] % Neutros 57 % [facility] % Lymphs 20 % [facility] % Monos 20 % [facility] % Eos 2 % [facility] % Baso 1 % [facility] # Neutros 3.71 1.78 - 5.38 K/L [facility] # Lymphs 1.31 (L) 1.32 - 3.57 K/L [facility] # Monos 1.30 (H) 0.30 - 0.82 K/L [facility] # Eos 0.11 0.04 - 0.54 K/L [facility] # Baso 0.04 0.01 - 0.08 K/L [facility] Immature Granulocytes-Relative 1 0 - 1 % [facility] Specimen Blood Performing Organization Address City/State/Zipcode Phone Number [facility] [address] [place] [address] [phone] CENTER ECHOCARDIOGRAM REPORT - SCAN (10/18/2018 6:20 PM INDUSTRIAL ORGANIZATIONAL PSYCHOLOGIST) Narrative Performed At 2D Echo W/Doppler(CW/PW/Color) (10/18/2018 11:41 AM INDUSTRIAL ORGANIZATIONAL PSYCHOLOGIST) Ejection Fraction [facility] ECHO HEARTLAB MKCKESSON [facility] Narrative Performed At Transthoracic Echocardiography Report (TTE) [facility] Demographics Patient Name BREANNE CLEMENT Date of Study10/18/2018 AZRA [id number] Gender Male Visit Number [id number] Black [id number] Room NumberOP Number Date of Birth1970Referring Ariana Sharma Physician Age48 year(s)Computer Network Specialist Teodoro Velazco Interpreting Physician MIGUEL Jimenez Procedure Type of Study TTE procedure:2DECHO W DOPPLER(CW/PW/COLOR) (Routine) Indications:Pre-surgical evaluation of organ transplant. Clinical History ESRD, HTN DIRECTOR OF CLINICAL SERVICES GARY LIMON [facility] RVT Height: 70 inches Weight: 92.99 kg (205 lbs) BSA: 2.11 m^2 BMI: 29.41 kg/m^2 HR: 63 bpm BP: 178/80 mmHg Summary The LV endocardium is well visualized. The left ventricle is chamber size (by vol index) is mildly enlarged (male - LVED 75-89ml/m2). Mild concentric LV hypertrophy. All of the LV segments contract normally . LVEF by Martini's method of disk assessment is lower limits of normal (50-55%) . Grade 2 diastolic dysfunction (moderately increased LA pressure). Mild mitral regurgitation. Estimated peak systolic PA pressure is 60-65 mmHg . No significant pericardial effusion is visualized. Signature Findings Left Ventricle The LV endocardium is well visualized. Th e left ventricle is chamber size (by vol index) is mildly enlarged (male - LVED 75-89ml/m2). Mild co ncentric LV hypertrophy. All of the LV segments co ntract normally . LVEF by Martini's method of di sk assessment is lower limits of normal (50-55%) . Gr linda 2 diastolic dysfunction (moderately increased LA pressure). Left AtriumLA size is mildly enlarged (35-41 ml/m2) . Right VentricleRV chamber size is mildly enlarged . Gl obal RV systolic function is low normal . Right Atrium RA size is mildly dilated. Atrial SeptumThe interatrial septum is well visualized. At rial septal position continuously bows le ft-to-right, consistent with elevated LA pressure . Aortic Valve Normal AoV structure. Mitral Valve Normal MV structure. Mi ld mitral regurgitation. Tricuspid CbyegSfys-kv-qagbrlja tricuspid regurgitation. Es timated peak systolic PA pressure is 60-65 mmHg . Pulmonic Valve Normal PV structure and function. A trace of pulmonary regurgitation. AortaAortic root size (SInus of Valsalva diameter) is no rmal . PericardiumNo significant pericardial effusion is visualized. IVC/SVC/PA/PV/PleuralThe estimated RA pressure by IVC dynamics 5-10mmHg . Chambers/Structures Left Atrium LA Volume: 100.17 mlLA Area: 27.36 cm^2 LA Vol. Index: 47 ml/m^2 Left Ventricle LVIDd: 7.07 cm LVEDV:261.36 ml LV Septum Diastolic: 1.38 cm LV PW Diastolic: 1.39 cm LVEDV Martini's:171.18 ml LVESV Martini's:79.79 ml LVEF Martini's: 53.4 % LVEDVI: 81 ml/m^2 LVESVI: 38 ml/m^2 LVOT Diameter: 2.37 cm Right Atrium RA Vol. (Sngl Plane): 89.21 ml Right Ventricle RV Diast Dim.: 4.29 cm TAPS E: 3.06 cm Doppler/Quantitative Measurements Mitral Valve MV Peak E-Wave: 1.32 m/sMV Peak A-Wave: 0.72 m/s E/A Ratio: 1.82 Peak Gradient: 6.95 mmHg Deceleration Time: 219.3 msec MV Sampson. Peak: Tissue Doppler E' Lateral Velocity: 0.08 m/s E/E': 16.11 Aortic Valve Peak Velocity: 2.19 m/s Mean Velocity: 1.38 m/s Peak Gradient: 19.13 mmHg Mean Gradient: 9.1 mmHg AV Area (continuity): 2.49 cm^2 AV VTI: 50.45 cm AV DVI: 0.56 LVOT Peak Velocity: 1.18 m/s Peak Gradient: 5.56 mmHg Mean Velocity: 0.81 m/s Mean Gradient: 2.97 mmHg LVOT Diameter: 2.37 cmLVOT VTI: 28.5 cm LVOT Area: 4.41 cm^2LVOT SV:125.66 ml LVOT CO: 7.92 l/min LVOT CI: 3.75 l/min/m^2 Tricuspid Valve TR Velocity: 3.7 m/s TR Gradient: 54.7 mmHg Procedure Note Interface, External Ris In - 10/18/2018 5:40 PM INDUSTRIAL ORGANIZATIONAL PSYCHOLOGIST Transthoracic Echocardiography Report (TTE) Demographics Patient Name BREANNE CLEMENT Date of Study 10/18/2018 AZRA Gender Male Visit Number [id number] Race Black Room Number OP Number Date of 1970 Referring Ariana Sharma Physician Age 48 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 Clinical History ESRD, HTN DIRECTOR OF CLINICAL SERVICES [facility] RVT Height: 70 inches Weight: 92.99 kg (205 lbs) BSA: 2.11 m^2 BMI: 29.41 kg/m^2 HR: 63 bpm BP: 178/80 mmHg Summary The LV endocardium is well visualized. The left ventricle is chamber size (by vol index) is mildly enlarged (male - LVED 75-89ml/m2). Mild concentric LV hypertrophy. All of the LV segments contract normally . LVEF by Martini's method of disk assessment is lower limits of normal (50-55%) . Grade 2 diastolic dysfunction (moderately increased LA pressure). Mild mitral regurgitation. Estimated peak systolic PA pressure is 60-65 mmHg . No significant pericardial effusion is visualized. Signature Findings Left Ventricle The LV endocardium is well visualized. The left ventricle is chamber size (by vol index) is mildly enlarged (male - LVED 75-89ml/m2). Mild concentric LV hypertrophy. All of the LV segments contract normally . LVEF by Martini's method of disk assessment is lower limits of normal (50-55%) . Grade 2 diastolic dysfunction (moderately increased LA pressure). Left Atrium LA size is mildly enlarged (35-41 ml/m2) . Right Ventricle RV chamber size is mildly enlarged . Global RV systolic function is low normal . Right Atrium RA size is mildly dilated. Atrial Septum The interatrial septum is well visualized. Atrial septal position continuously bows fabg-ih-kdbey, consistent with elevated LA pressure . Aortic Valve Normal AoV structure. Mitral Valve Normal MV structure. Mild mitral regurgitation. Tricuspid Valve Gweq-wz-bkaywkfc tricuspid regurgitation. Estimated peak systolic PA pressure is 60-65 mmHg . Pulmonic Valve Normal PV structure and function. A trace of pulmonary regurgitation. Aorta Aortic root size (SInus of Valsalva diameter) is normal . Pericardium No significant pericardial effusion is visualized. IVC/SVC/PA/PV/Pleural The estimated RA pressure by IVC dynamics 5-10mmHg . Chambers/Structures Left Atrium LA Volume: 100.17 ml LA Area: 27.36 cm^2 LA Vol. Index: 47 ml/m^2 Left Ventricle LVIDd: 7.07 cm LVEDV:261.36 ml LV Septum Diastolic: 1.38 cm LV PW Diastolic: 1.39 cm LVEDV Martini's:171.18 ml LVESV Martini's:79.79 ml LVEF Martini's: 53.4 % LVEDVI: 81 ml/m^2 LVESVI: 38 ml/m^2 LVOT Diameter: 2.37 cm Right Atrium RA Vol. (Sngl Plane): 89.21 ml Right Ventricle RV Diast Dim.: 4.29 cm TAPSE: 3.06 cm Doppler/Quantitative Measurements Mitral Valve MV Peak E-Wave: 1.32 m/s MV Peak A-Wave: 0.72 m/s E/A Ratio: 1.82 Peak Gradient: 6.95 mmHg Deceleration Time: 219.3 msec MV Sampson. Peak: Tissue Doppler E' Lateral Velocity: 0.08 m/s E/E': 16.11 Aortic Valve Peak Velocity: 2.19 m/s Mean Velocity: 1.38 m/s Peak Gradient: 19.13 mmHg Mean Gradient: 9.1 mmHg AV Area (continuity): 2.49 cm^2 AV VTI: 50.45 cm AV DVI: 0.56 LVOT Peak Velocity: 1.18 m/s Peak Gradient: 5.56 mmHg Mean Velocity: 0.81 m/s Mean Gradient: 2.97 mmHg LVOT Diameter: 2.37 cm LVOT VTI: 28.5 cm LVOT Area: 4.41 cm^2 LVOT SV:125.66 ml LVOT CO: 7.92 l/min LVOT CI: 3.75 l/min/m^2 Tricuspid Valve TR Velocity: 3.7 m/s TR Gradient: 54.7 mmHg Performing Organization Address City/State/Zipcode Phone Number [facility] ECHO HEARTLAB MKCKESSON CPACS Occult blood, stool (10/18/2018 11:12 AM INDUSTRIAL ORGANIZATIONAL PSYCHOLOGIST)Only the most recent of2 resultswithin the time period is included. Occult blood Negative Negative [facility] Specimen Stool - Stool Performing Organization Address City/State/Zipcode Phone Number [facility] [address] [place] [address] CENTER Tissue Exam (07/05/2018 4:20 PM CDT) Case Report Surgical Pathology Report Case: [id number] [facility] Authorizing Provider:Regina Krishnamurthy MD Collected: 07/05/2018 1620 [facility] Ordering Location: [place] [address] OP Received:07/05/2018 1620 Pathologist: Julia Oconnor MD Specimen:Biopsy, Liver DIAGNOSIS LIVER, TRANSJUGULAR NEEDLE BIOPSIES [facility] - PERISINUSOIDAL AND PORTAL/PERIPORTAL FIBROSIS [facility] - NO DEFINITIVE BRIDGING FIBROSIS OR CIRRHOSIS SEEN - MILD SINUSOIDAL DILATATION - SEE COMMENT Signing Pathologist Direct Phone Line: [phone] COMMENT Zone 3 sinusoidal dilatation could be secondary to drug effect, chronic venous outflow obstruction or impaired portal venous blood flow. In some cases, it is nonspecific with no clinical relevance. Clinical correlation is suggested. [facility] CPT Code(s) 08915, 70254 X4 [facility] CLINICAL HISTORY Cirrhosis of liver, renal [facility] transplant workup [facility] SPECIMEN SOURCE Transjugular liver biopsy [facility] GROSS DESCRIPTION The specimen is received in [facility] a formalin-filled container [facility] labeled with the patient's information and labeled "transjugular liver biopsy" and consists of three round core biopsies ranging in length from 0.5 to 1 cm, submitted entirely in A1. CG/ew MICROSCOPIC DESCRIPTION Section shows multiple variably sized cores of liver parenchyma with greater than 10 portal tracts and is adequate for evaluation. No steatosis, ballooning degeneration or Irma Denk hyaline is presen [facility] t. No cholestasis or acidophilic bodies are seen. No significant portal inflammation is noted. The bile ducts are preserved and unremarkable. Trichrome stain shows perisinusoidal and portal/periportal f [facility] ibrosis. Iron stain shows 2+ staining of the hepatocytes and there is iron accumulation in the kupffer cells. Iron is also present in portal macrophages and endothelial cells. No hyaline globules are seen on PASD stain. Special stains: trichrome, reticulin, iron and PAS with diastase. Specimen Tissue - Biopsy, Liver Performing Organization Address City/State/[facility] Phone Number [facility] [address] [place] [address] CENTER IR Transcatheter Biopsy of Kidney/Liver (07/05/2018 1:23 PM CDT) Narrative Performed At FINAL REPORT [facility] Transjugular liver biopsy, 07/05/2018. History: Renal transplant workup. Modality: Fluoroscopy. Sedation: Versed 1.5 mg and fentanyl 75 mcg was given intravenously for conscious sedation.Vital signs were monitored throughout the procedure by a nurse, and remained stable. Physician intra-service time was 35 min. Pot Lining Supervisor:Jagdeep Jiang MD. Internet Researcher:None. Approach: Right internal jugular vein Estimated blood loss:< 5 cc. Specimen: 3 19-gauge core specimens placed within formalin and sent to pathology. Fluoroscopy Time: 8.8 min. Reference Air Kerma (Ka, r): 200 mGy. Technique: Her prescription IR Prep Ultrasound evaluation showed a patent and compressible right internal jugular vein, which was punctured under direct real-time ultrasound guidance with a micropuncture needle.An ultrasound image was saved to PACS. A 0.018 inch wire was placed through the needle into the right atrium. A 4 [place] micropuncture sheath was placed. A 0.035 inch J-wire was placed through the micropuncture sheath and the sheath was exchanged for a 9 [place] sheath. A 5 [place] angled tip catheter was used to select the right hepatic vein. Venogram was performed. Pressures were obtained through the catheter with measurements as follows: wedged hepatic - 24 mmHg, free hepatic - 17, and right atrium - 16.A long metal reinforced 7 [place] sheath was placed through the 9 [place] sheath into the right hepatic vein. A long 19-gauge core biopsy needle was then placed through sheath with 4 core samples obtained within the liver. The needle and sheath were removed.Hemostasis was obtained with manual compression.The patient tolerated the procedure well and left the department in the same condition. Findings: Venogram demonstrates patent right hepatic vein and intrahepatic IVC. Impression: Successful, uncomplicated transjugular liver biopsy, using fluoroscopic guidance and conscious sedation.HVPG 7 mmHg. Signed: Jagdeep Jiang MD Report Verified Date/Time:07/05/2018 17:44:43 Reading Location: [place] [address] Angio Body Reading Room Procedure Note Interface, External Ris In - 07/05/2018 5:46 PM CDT FINAL REPORT Transjugular liver biopsy, 07/05/2018. History: Renal transplant workup. Modality: Fluoroscopy. Sedation: Versed 1.5 mg and fentanyl 75 mcg was given intravenously for conscious sedation. Vital signs were monitored throughout the procedure by a nurse, and remained stable. Physician intra-service time was 35 min. Pot Lining Supervisor: Jagdeep Jiang MD. Internet Researcher: None. Approach: Right internal jugular vein Estimated blood loss: < 5 cc. Specimen: 3 19-gauge core specimens placed within formalin and sent to pathology. Fluoroscopy Time: 8.8 min. Reference Air Kerma (Ka, r): 200 mGy. Technique: Her prescription IR Prep Ultrasound evaluation showed a patent and compressible right internal jugular vein, which was punctured under direct real-time ultrasound guidance with a micropuncture needle. An ultrasound image was saved to PACS. A 0.018 inch wire was placed through the needle into the right atrium. A 4 [place] micropuncture sheath was placed. A 0.035 inch J-wire was placed through the micropuncture sheath and the sheath was exchanged for a 9 [place] sheath. A 5 [place] angled tip catheter was used to select the right hepatic vein. Venogram was performed. Pressures were obtained through the catheter with measurements as follows: wedged hepatic - 24 mmHg, free hepatic - 17, and right atrium - 16. A long metal reinforced 7 [place] sheath was placed through the 9 [place] sheath into the right hepatic vein. A long 19-gauge core biopsy needle was then placed through sheath with 4 core samples obtained within the liver. The needle and sheath were removed. Hemostasis was obtained with manual compression. The patient tolerated the procedure well and left the department in the same condition. Findings: Venogram demonstrates patent right hepatic vein and intrahepatic IVC. Impression: Successful, uncomplicated transjugular liver biopsy, using fluoroscopic guidance and conscious sedation. HVPG 7 mmHg. Signed: Jagdeep Jiang MD Report Verified Date/Time: 07/05/2018 17:44:43 Reading Location: [place] [address] Angio Body Reading Room Performing Organization Address City/State/Zipcode Phone Number [facility] aPTT (07/05/2018 9:54 AM CDT) PTT 33.8 22.5 - 36.0 seconds [facility] Specimen Blood Performing Organization Address City/[facility] Phone Number [address] [address] [phone] CENTER Prothrombin time/INR (07/05/2018 9:54 AM CDT) Protime 15.7 (H) 11.7 - 14.7 seconds [facility] INR 1.3 <=5.9 [facility] Specimen Blood Narrative Performed At [facility] RECOMMENDED COUMADIN/WARFARIN INR THERAPY RANGES STANDARD DOSE: 2.0 - 3.0 Includes: PROPHYLAXIS for venous thrombosis, systemic embolization; TREATMENT for venous thrombosis and/or pulmonary embolus. HIGH RISK: Target INR is 2.5-3.5 for patients with mechanical heart valves. Performing Organization Address City/[facility] Cent[facility]ode Phone Number [address] [address] [phone] CENTER Platelet count (07/05/2018 9:54 AM CDT) Platelets 187 150 - 450 K/CU MM [facility] Specimen Blood Performing Organization Address [facility] Center[facility]m Phone Number [address] [address] [place] Comprehensive metabolic panel (07/05/2018 9:54 AM CDT)Only the most recent of3 resultswithin the time period is included. Protein, Total 7.7 6.0 - 8.3 gm/dL [facility] Albumin 3.8 3.5 - 5.0 g/dL [facility] Alkaline Phosphatase 74 40 - 150 U/L [facility] Total Bilirubin 0.7 0.2 - 1.2 mg/dL [facility] Sodium 138 136 - 145 meq/L [facility] Potassium 5.2 (H) 3.5 - 5.1 meq/L [facility] Chloride 103 98 - 107 meq/L [facility] CO2 25 22 - 29 meq/L [facility] BUN 77 (H) 7 - 21 mg/dL [facility] Creatinine 15.84 (H) 0.57 - 1.25 mg/dL [facility] Glucose 88 70 - 105 mg/dL [facility] Calcium 9.2 8.4 - 10.2 mg/dL [facility] AST 17 5 - 34 U/L [facility] ALT 9 6 - 55 U/L [facility] EGFR 4Comment: ESTIMATED GFR mL/min/1.73 sq m [facility] IS NOT ACCURATE [facility] CREATININE CLEARANCE IN PREDICTING GLOMERULAR FILTRATION RATE. ESTIMATED GFR IS NOT APPLICABLE FOR DIALYSIS PATIENTS. Specimen Blood Performing Organization Address [facility] Centercode Phone Number [address] [address] [place] Hepatitis A antibody, IgG (06/14/2018 2:45 PM CDT) Hep A IgG Reactive (A) Nonreactive [facility] Specimen Blood Performing Organization Address [facility] Centercode Phone Number [address] [address] [phone] CENTER Mitochondrial Antibodies, M2 (06/14/2018 2:45 PM CDT) Mitochondria M2 Ab <20.0 See Note: U [facility] Comment: Reference Range: NEGATIVE:< OR=20.0 EQUIVOCAL: 20.1-24.9 POSITIVE:> OR=25.0 Specimen Blood Narrative Performed At Performing Lab [facility] [address] [address] [place] [address] Jay Ocampo MD, PhD, DIONISIO Performing Organization Address City/[facility] Centercode Phone Number [place] [address] INCORPORATED [address] [facility] Iron, TIBC, % sat. (without ferritin) (06/14/2018 2:45 PM CDT) Iron 38 (L) 40 - 160 ug/dL [facility] TIBC 231 (L) 250 - 450 ug/dL [facility] Iron % Saturation 16 (L) 20 - 55 % [facility] Specimen Blood Performing Organization Address [facility]/Zipcode Phone Number [address] [address] [phone] CENTER Actin (Smooth Muscle) Antibody, IgG (06/14/2018 2:45 PM CDT) Anti-Smooth Muscle Ab 39 (H) See Note: U [facility] Comment: [facility]POR[facility] Reference Range: <20 NEGATIVE > OR=20 POSITIVE Antibodies recognizing actin are the main component of smooth muscle antibodies associated with autoimmune liver disease. Actin antibodies are found in approximately 75% of patients with autoimmune hepatitis (AIH) type 1, approximately 65% of patients with autoimmune cholangitis, approximately 30% of patients with primary biliary cirrhosis, and approximately 2% of healthy people. High values are closely correlated with AIH type 1. Specimen Blood Narrative Performed At Performing Lab [facility] [address] [address] Jay Ocampo MD, PhD, DIONISIO Performing Organization Address [facility] Centerconm Phone Number [place] [address] [place] [address] [id number] (06/14/2018 2:45 PM CDT) A-1 Antitrypsin 198.30 90.00 - 200.00 mg/dL [facility] Specimen Blood Performing Organization Address City/[facility]/Zipcode Phone Number [address] [address] CENTER Ceruloplasmin (06/14/2018 2:45 PM CDT) Ceruloplasmin 29 18 - 36 mg/dL [facility] Comment: Adults:Males: 18-36 mg/dL Females: 18-53 mg/dL Pediatrics:Males (mg/dL)Females (mg/dL) 0-30 Days 8-25 3-28 31 Days-11 Month 15-43 1-3 [id number] 4-6 [id number] 7-9 [id number] 10-12 [id number] 13-15 [id number] 16-18 [id number] The pediatric ranges are derived from the following criteria: Stormy DEL REAL, Yvette AHMADI, Brandi J et al Pediatric reference ranges for Ozha-4-Bgfjshcdvzbkt and ceruloplasmin. Clin. Chem 1997; 43:S1999 Pediatric Reference Ranges, 2nd., [place] Stormyet al. editors. [employer], [place], [place] 1997. Specimen Blood Narrative Performed At Performing Lab [facility] *[facility] [facility], [address] [place] [phone] Sherin Morales MD, PhD Performing Organization Address [facility] Centercode Phone [place] [address] INCORPORATED [address] [facility] Hepatitis B core antibody, total (06/14/2018 2:45 PM CDT) Hep B Core Total Ab NON-REACTIVE Nonreactive [facility] Specimen Blood Performing Organization Address City/[facility]/Zipcode Phone Number [address] [address] CENTER Anti-Nuclear Antibody (AZIZA) (06/14/2018 2:45 PM CDT) AZIZA Negative Negative [facility] Specimen Blood Narrative Performed At [facility] Test performed by IFA method. Test performed by IFA method. Performing Organization Address [facility] Centercode Phone Number [address] [phone] [place] Ferritin (06/14/2018 2:45 PM CDT) Ferritin 482 (H) 5 - 275 ng/mL [facility] Specimen Blood Performing Organization Address City/State/Zipcode Phone Number [address] [phone] [place] Bilirubin, direct (06/14/2018 2:45 PM CDT) Bilirubin, Direct 0.4 0.1 - 0.5 mg/dL [facility] Specimen Blood Performing Organization Address City/State/Zipcode Phone Number [address] [address] [phone] [place] PERIPHERAL VASCULAR REPORT - SCAN (05/17/2018 1:50 PM CDT) Narrative Performed At ECHOCARDIOGRAM REPORT - SCAN (05/17/2018 1:20 PM CDT) Narrative Performed At STRESS ECHO With Contrast & Tracing (05/17/2018 9:25 AM CDT) Ejection Fraction [facility] ECHO HEARTLAB Onset TechnologyCKESSON [facility] Narrative Performed At Stress Echocardiography Report [facility] ECHO HEARTLAB MKCKESSON [facility] Demographics Patient NameDAVIS, DEXTERDate of Study05/17/2018 AZRA Gender Male Visit [id number] Race Black NumberOP Number Date of 1970 [facility] [place] Digna PhysicianFox gates Age 47 year(s) SonaMsha Red, RDCS Interpreting Avelino Delgado MD Physician FellowMELVIN Schulte FEL Procedure Type of Study Stress procedure:STRESS ECHO/TMT W/DOP&TRAC (Routine) Indications:Pre-surgical evaluation of organ transplant. Clinical History HGB 11.5 HCT 35.6 % ESRD, HTN, HLD s/p Cardiac Cath (2010) Contrast Medium: Definity. Amount - 2 ml Height: 71 inches Weight: 92.99 kg (205 lbs) BSA: 2.13 m^2 BMI: 28.59 kg/m^2 HR: 60 bpm BP: 195/72 mmHg Rest ECG Normal resting ECG. Standing HR:65 bpmStanding BP:158/63 mmHg Stress Stress Type: Pharmacologic Peak HR: 130 bpm HR Response: Normal Peak BP: 208/94 mmHg BP Response: See below Predicted HR: 173 bpm HR BP Product: [id number] % of predicted HR: 75 Test Duration: 24:25 min Reason for Termination: Target heart rate Stress Interpretation STRESS ECHO. All segments contract normally at baseline and at all stages of stress. Results Global LVEF (rest): Normal (LVEF >50%) Global LVEF (stress): Normal (LVEF >50%) ECG Upsloping < 1mm ST depression Arrhythmias No significant rhythm abnormality during stress or recovery. Symptoms Developed substernal chest pressure. Maximum chest discomfort 6 /10 intensity with stress. Resolved upon completion of stress. Summary This is an indeterminate Echocardiographic Stress Test due to inability to achieved adequate HR response. There was no significant ST changes or provoked wall motion abnormality at 75% achieved age- predicted maximum HR. 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 Clinical History HGB 11.5 HCT 35.6 % ESRD, HTN, HLD s/p Cardiac Cath (2010) Contrast Medium: Definity. Amount - 2 ml Height: 71 inches Weight: 92.99 kg (205 lbs) BSA: 2.13 m^2 BMI: 28.59 kg/m^2 HR: 60 bpm BP: 195/72 mmHg Rest ECG Normal resting ECG. Standing HR:65 bpmStanding BP:158/63 mmHg Stress Stress Type: Pharmacologic Peak HR: 130 bpm HR Response: Normal Peak BP: 208/94 mmHg BP Response: See below Predicted HR: 173 bpm HR BP Product: [id number] % of predicted HR: 75 Test Duration: 24:25 min Reason for Termination: Target heart rate Stress Interpretation STRESS ECHO. All segments contract normally at baseline and at all stages of stress. Results Global LVEF (rest): Normal (LVEF >50%) Global LVEF (stress): Normal (LVEF >50%) ECG Upsloping < 1mm ST depression Arrhythmias No significant rhythm abnormality during stress or recovery. Symptoms Developed substernal chest pressure. Maximum chest discomfort 6 /10 intensity with stress. Resolved upon completion of stress. Summary This is an indeterminate Echocardiographic Stress Test due to inability to achieved adequate HR response. There was no significant ST changes or provoked wall motion abnormality at 75% achieved age- predicted maximum HR. Signature Performing Organization Address [facility]/State/Zipcode Phone Number [facility] 2D Echo W/Doppler(CW/PW/Color) (05/17/2018 8:30 AM CDT) Ejection Fraction [facility] Narrative Performed At Transthoracic Echocardiography Report (TTE) [facility] Demographics Patient Dwain Hellerte of Study05/17/2018 AZRA Gender Male Visit [id number] Race Black NumberOP Number Date of 1970 ReferringNelson gates Age 47 year(s) Kathie Red [facility] Interpreting Avelino Delgado MD Physician Procedure Type of Study TTE procedure:2DECHO W DOPPLER(CW/PW/COLOR) (Routine) Indications:Pre-surgical evaluation of organ transplant. Clinical History HGB 11.5 HCT 35.6 % ESRD, HTN, HLD s/p Cardiac Cath (2010) Height: 71 inches Weight: 92.99 kg (205 lbs) BSA: 2.13 m^2 BMI: 28.59 kg/m^2 HR: 60 bpm BP: 195/72 mmHg Summary The left ventricle is chamber size (by vol index) is moderately enlarged (male - LVED vol 90-100ml.m2) . Moderate concentric LV hypertrophy. All of the LV segments contract normally . LVEF by Martini's method of disk assessment is normal (55-60%) . Grade 3 diastolic dysfunction (marked elevated LA pressure). Estimated peak systolic PA pressure is 55-60 mmHg . No pericardial effusion is visualized. Signature Findings Technical Quality: Technically adequate exam. Left Ventricle The left ventricle is chamber size (by vol index) is moderately enlarged (male - LVED vol 90 -100ml.m2) . Moderate concentric LV hypertrophy. Al l of the LV segments contract normally . LVEF by Si mpson's method of disk assessment is normal (5 5-60%) . Grade 3 diastolic dysfunction (marked el evated LA pressure). Left AtriumLA size is mildly enlarged (35-41 ml/m2) . Right VentricleThe right ventricular chamber size and systolic fu nction are within normal limits. Right Atrium RA size is severely dilated. Aortic Valve Normal AoV structure. Mitral Valve Normal MV structure. Tr jayy mitral regurgitation. Tricuspid ValveTV structure is normal. Mi ld tricuspid regurgitation. Es timated peak systolic PA pressure is 55-60 mmHg . Pulmonic Valve Mild pulmonary regurgitation. AortaAortic root size (SInus of Valsalva diameter) is no rmal . PericardiumNo pericardial effusion is visualized. IVC/SVC/PA/PV/PleuralThe estimated RA pressure by IVC dynamics 11-15mmHg . Chambers/Structures Left Atrium LA Dimension: 4.97 cmLA Area: 24.27 cm^2 LA Volume: 78.44 ml LA Vol. Index: 37 ml/m^2 Left Ventricle LVIDd: 6.62 cm LVIDs: 4.37 cm LV Septum Diastolic: 1.63 cm LV PW Diastolic: 1.73 cmLV FS: 34 % LVEDV Martini's:202.21 ml LVESV Martini's:89.09 mlLVEDVI: 95 ml/m^2 LVEF Martini's: 55.9 %LVESV I: 42 ml/m^2 LVOT Diameter: 2.29 cm Right Atrium RA Vol. (Sngl Plane): 114.85 ml Aorta Ao Root S of Larissa.: 3.26 cm Doppler/Quantitative Measurements LVOT Peak Velocity: 0.99 m/s Peak Gradient: 3.88 mmHg Mean Velocity: 0.59 m/s Mean Gradient: 1.76 mmHg LVOT Diameter: 2.29 cmLVOT VTI: 23.15 cm LVOT Area: 4.12 cm^2LVOT SV:95.3 ml LVOT CO: 5.72 l/min LVOT CI: 2.69 l/min/m^2 Procedure Note Interface, External Ris In - 05/17/2018 12:54 PM CDT Transthoracic Echocardiography Report (TTE) Demographics Patient Name BREANNE CLEMENT Date of Study 05/17/2018 AZRA Gender Male Visit Number [id number] Race Black Room Number OP Number Date of 1970 Referring Nelson Sawyer Physician Frantz Age 47 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 Clinical History HGB 11.5 HCT 35.6 % ESRD, HTN, HLD s/p Cardiac Cath (2010) Height: 71 inches Weight: 92.99 kg (205 lbs) BSA: 2.13 m^2 BMI: 28.59 kg/m^2 HR: 60 bpm BP: 195/72 mmHg Summary The left ventricle is chamber size (by vol index) is moderately enlarged (male - LVED vol 90-100ml.m2) . Moderate concentric LV hypertrophy. All of the LV segments contract normally . LVEF by Martini's method of disk assessment is normal (55-60%) . Grade 3 diastolic dysfunction (marked elevated LA pressure). Estimated peak systolic PA pressure is 55-60 mmHg . No pericardial effusion is visualized. Signature Findings Technical Quality: Technically adequate exam. Left Ventricle The left ventricle is chamber size (by vol index) is moderately enlarged (male - LVED vol 90-100ml.m2) . Moderate concentric LV hypertrophy. All of the LV segments contract normally . LVEF by Martini's method of disk assessment is normal (55-60%) . Grade 3 diastolic dysfunction (marked elevated LA pressure). Left Atrium LA size is mildly enlarged (35-41 ml/m2) . Right Ventricle The right ventricular chamber size and systolic function are within normal limits. Right Atrium RA size is severely dilated. Aortic Valve Normal AoV structure. Mitral Valve Normal MV structure. Trace mitral regurgitation. Tricuspid Valve TV structure is normal. Mild tricuspid regurgitation. Estimated peak systolic PA pressure is 55-60 mmHg . Pulmonic Valve Mild pulmonary regurgitation. Aorta Aortic root size (SInus of Valsalva diameter) is normal . Pericardium No pericardial effusion is visualized. IVC/SVC/PA/PV/Pleural The estimated RA pressure by IVC dynamics 11-15mmHg . Chambers/Structures Left Atrium LA Dimension: 4.97 cm LA Area: 24.27 cm^2 LA Volume: 78.44 ml LA Vol. Index: 37 ml/m^2 Left Ventricle LVIDd: 6.62 cm LVIDs: 4.37 cm LV Septum Diastolic: 1.63 cm LV PW Diastolic: 1.73 cm LV FS: 34 % LVEDV Martini's:202.21 ml LVESV Martini's:89.09 ml LVEDVI: 95 ml/m^2 LVEF Martini's: 55.9 % LVESVI: 42 ml/m^2 LVOT Diameter: 2.29 cm Right Atrium RA Vol. (Sngl Plane): 114.85 ml Aorta Ao Root S of Larissa.: 3.26 cm Doppler/Quantitative Measurements LVOT Peak Velocity: 0.99 m/s Peak Gradient: 3.88 mmHg Mean Velocity: 0.59 m/s Mean Gradient: 1.76 mmHg LVOT Diameter: 2.29 cm LVOT VTI: 23.15 cm LVOT Area: 4.12 cm^2 LVOT SV:95.3 ml LVOT CO: 5.72 l/min LVOT CI: 2.69 l/min/m^2 Performing Organization Address City/State/Zipcode Phone Number [facility] abdomen & pelvis (05/17/2018 7:54 AM CDT) Narrative [facility] REPORT STATUS:A Addendum: There is marked ascites. There is some irregularity of the liver margin and clinical correlation is needed if cirrhosis is suspected clinically. There is no evidence of splenomegaly. To further characterize the liver parenchyma and exclude neoplastic processes correlation with a triple phase CT of the liver or MR after paracentesis is recommended if clinically appropriate. Vascular shunting is suspected. Calcific changes in the pancreas may be secondary to prior pancreatitis. Signed: Anabela Glover MD Report Verified Date/Time:05/17/2018 17:24:10 Reading Location: [facility] [id number] Angio Body Reading Room Addendum Ends FINAL REPORT CT angiography of the abdominal aorta and pelvic arteries, second May 2018 INDICATION: This is a 47 year old male with end-stage renal disease, presents for pretransplant assessment.This study is performed in an attempt to avoid an invasive procedure. TECHNIQUE: Spiral acquisition before and during intravenous contrast administration using a Jess multidetector CT scanner. Images were obtained before and during the dynamic passage of intravenous contrast material.Multi-planar 3-D volume-rendering reconstruction was performed using an independent workstation interactively by the interpreting physician as well as the 3-D specialist for optimal visualisation of the abdominal aorta, pelvic arteries, and its proximal branches. Please refer to the contrast sheet scanned in the RIS system for the amount and route of contrast given. This exam was performed according to our departmental dose-optimisation programme, which includes automated exposure control, adjustment of the mA and/or kV according to patient size and/or use of iterative reconstruction technique. Dose modulation, iterative reconstruction, and/or weight based adjustment of the mA/kV was utilized to reduce the radiation dose to as low as reasonably achievable. FINDINGS: VASCULAR: The abdominal aorta is normal in course, calibre and contour. There is scattered calcific and noncalcific atherosclerosis identified in the abdominal aorta. No ectasia or aneurysmal dilation is seen. There is no evidence of acute aortic pathology, specifically, there is no dissection, intramural hematoma, or contained rupture. Quantitative dimensions of the abdominal aorta are as follows: 1.9 cm at the mesenteric segment; 2.0 cm at the renal segment,; and 1.7 cm at the aortic bifurcation. The common iliac, external iliac, common femoral, and the visualized superficial femoral arteries, bilaterally, are widely patent, except for scattered calcific atherosclerosis, predominantly in the common iliac arteries bilaterally. Associate Sales Manager dimensions of the left and the right external iliac arteries are 8-9 and 8 mm, respectively. Similarly, the associated pelvic veins are patent with no venous thrombosis identified.Associate Sales Manager dimensions of the left and the right external iliac veins are 12 and 11 mm, respectively. There are single left and right renal arteries that are widely patent; some eccentric nonobstructive calcification is seen in the proximal right renal artery. The coeliac axis, SMA, and ALEXIS are widely patent. Replaced right hepatic artery is identified, a common variant. There are single left and right renal veins that drain normally into inferior vena cava. NON-VASCULAR: The lung bases are unremarkable. No pleural effusion is identified. In the abdomen, the liver and spleen appears unremarkable. There is tiny patchy enhancement identified in the right hepatic lobe at image 66 to represent a vascular shunting. There is another enhancement identified, in the caudate lobe, for example image 62; in the second dynamic data set, this is not well appreciated, and may represent vascular shunting as well. An addendum will be dictated thereafter, if needed. The pancreas appears unremarkable. Tiny focal calcification is identified in the body of the pancreas at image 16 of the precontrast series. The adrenal glands are not enlarged. The gallbladder appears unremarkable. The kidneys are atrophic consistent with end-stage renal disease status. No hydronephrosis or perirenal fluid collection is seen. Large amount of ascites is identified in the abdomen and pelvis. Bowel is incompletely assessed by CT angiography as enteric contrast is not given. No obvious bowel dilation is identified. Small umbilical hernia with fluid is noted. The bladder is not distended. The prostate gland appears grossly unremarkable. No free air is identified abdomen and pelvis. No significant retroperitoneal adenopathy is identified, however, some small nonspecific para-aortic lymph nodes are seen. In the bony windows, no acute bony pathology is identified. CONCLUSIONS: 1. The abdominal aorta is normal in course, calibre and contour. Scattered calcification is seen. There is no evidence of acute aortic pathology, specifically, there is no dissection, intramural hematoma, or contained rupture. Quantitative dimension of the abdominal aorta are as noted. The pelvic arteries and veins are widely patent with no arterial stenosis or venous thrombosis identified. Associate Sales Manager dimensions of the left and the right external iliac arteries and veins are as described above. 2.Patent mesenteric and renal arteries. 3.Other findings as described above. Ascites. 4.An addendum will be dictated regarding the non-vascular findings by the Recreation Professor Radiologist. Signed: Casey Martin MD Report Verified Date/Time:05/17/2018 08:26:59 Reading Location: [place] [id number] Cardiology MRI Procedure Note Interface, External Ris In - 05/17/2018 5:26 PM CDT Addendum Begins REPORT STATUS:A Addendum: There is marked ascites. There is some irregularity of the liver margin and clinical correlation is needed if cirrhosis is suspected clinically. There is no evidence of splenomegaly. To further characterize the liver parenchyma and exclude neoplastic processes correlation with a triple phase CT of the liver or MR after paracentesis is recommended if clinically appropriate. Vascular shunting is suspected. Calcific changes in the pancreas may be secondary to prior pancreatitis. Signed: Anabela Glover MD Report Verified Date/Time: 05/17/2018 17:24:10 Reading Location: [place] [id number] Angio Body Reading Room Addendum Ends FINAL REPORT CT angiography of the abdominal aorta and pelvic arteries, second May 2018 INDICATION: This is a 47 year old male with end-stage renal disease, presents for pretransplant assessment. This study is performed in an attempt to avoid an invasive procedure. TECHNIQUE: Spiral acquisition before and during intravenous contrast administration using a Jess multidetector CT scanner. Images were obtained before and during the dynamic passage of intravenous contrast material. Multi-planar 3-D volume-rendering reconstruction was performed using an independent workstation interactively by the interpreting physician as well as the 3-D specialist for optimal visualisation of the abdominal aorta, pelvic arteries, and its proximal branches. Please refer to the contrast sheet scanned in the RIS system for the amount and route of contrast given. This exam was performed according to our departmental dose-optimisation programme, which includes automated exposure control, adjustment of the mA and/or kV according to patient size and/or use of iterative reconstruction technique. Dose modulation, iterative reconstruction, and/or weight based adjustment of the mA/kV was utilized to reduce the radiation dose to as low as reasonably achievable. FINDINGS: VASCULAR: The abdominal aorta is normal in course, calibre and contour. There is scattered calcific and noncalcific atherosclerosis identified in the abdominal aorta. No ectasia or aneurysmal dilation is seen. There is no evidence of acute aortic pathology, specifically, there is no dissection, intramural hematoma, or contained rupture. Quantitative dimensions of the abdominal aorta are as follows: 1.9 cm at the mesenteric segment; 2.0 cm at the renal segment,; and 1.7 cm at the aortic bifurcation. The common iliac, external iliac, common femoral, and the visualized superficial femoral arteries, bilaterally, are widely patent, except for scattered calcific atherosclerosis, predominantly in the common iliac arteries bilaterally. Associate Sales Manager dimensions of the left and the right external iliac arteries are 8-9 and 8 mm, respectively. Similarly, the associated pelvic veins are patent with no venous thrombosis identified. Associate Sales Manager dimensions of the left and the right external iliac veins are 12 and 11 mm, respectively. There are single left and right renal arteries that are widely patent; some eccentric nonobstructive calcification is seen in the proximal right renal artery. The coeliac axis, SMA, and ALEXIS are widely patent. Replaced right hepatic artery is identified, a common variant. There are single left and right renal veins that drain normally into inferior vena cava. NON-VASCULAR: The lung bases are unremarkable. No pleural effusion is identified. In the abdomen, the liver and spleen appears unremarkable. There is tiny patchy enhancement identified in the right hepatic lobe at image 66 to represent a vascular shunting. There is another enhancement identified, in the caudate lobe, for example image 62; in the second dynamic data set, this is not well appreciated, and may represent vascular shunting as well. An addendum will be dictated thereafter, if needed. The pancreas appears unremarkable. Tiny focal calcification is identified in the body of the pancreas at image 16 of the precontrast series. The adrenal glands are not enlarged. The gallbladder appears unremarkable. The kidneys are atrophic consistent with end-stage renal disease status. No hydronephrosis or perirenal fluid collection is seen. Large amount of ascites is identified in the abdomen and pelvis. Bowel is incompletely assessed by CT angiography as enteric contrast is not given. No obvious bowel dilation is identified. Small umbilical hernia with fluid is noted. The bladder is not distended. The prostate gland appears grossly unremarkable. No free air is identified abdomen and pelvis. No significant retroperitoneal adenopathy is identified, however, some small nonspecific para-aortic lymph nodes are seen. In the bony windows, no acute bony pathology is identified. CONCLUSIONS: 1. The abdominal aorta is normal in course, calibre and contour. Scattered calcification is seen. There is no evidence of acute aortic pathology, specifically, there is no dissection, intramural hematoma, or contained rupture. Quantitative dimension of the abdominal aorta are as noted. The pelvic arteries and veins are widely patent with no arterial stenosis or venous thrombosis identified. Associate Sales Manager dimensions of the left and the right external iliac arteries and veins are as described above. 2. Patent mesenteric and renal arteries. 3. Other findings as described above. Ascites. 4. An addendum will be dictated regarding the non-vascular findings by the Recreation Professor Radiologist. Signed: Casey Martin MD Report Verified Date/Time: 05/17/2018 08:26:59 Reading Location: [place] [id number] Cardiology MRI Performing Organization Address City/State/Zipcode Phone Number [facility] RIS XR chest 2 views (05/17/2018 6:53 AM CDT) Narrative Performed At FINAL REPORT [facility] Fundation Chest two views INDICATION: ESRD, renal transplant evaluation. COMPARISON: None available IMPRESSION: The cardiac silhouette is enlarged. There is pulmonary vascular congestion with interstitial and perihilar opacities suggestive of edema. Trace right pleural effusion is present. The aorta is mildly ectatic/tortuous. Mild right convex spine curvature is present. No pneumothorax is seen. Signed: Grant Avilez MD Report Verified Date/Time:05/17/2018 08:03:33 Reading Location: [facility] Reading Room Procedure Note Interface, External Ris In - 05/17/2018 8:05 AM CDT FINAL REPORT Chest two views INDICATION: ESRD, renal transplant evaluation. COMPARISON: None available IMPRESSION: The cardiac silhouette is enlarged. There is pulmonary vascular congestion with interstitial and perihilar opacities suggestive of edema. Trace right pleural effusion is present. The aorta is mildly ectatic/tortuous. Mild right convex spine curvature is present. No pneumothorax is seen. Signed: Grant Avilez MD Report Verified Date/Time: 05/17/2018 08:03:33 Reading Location: [facility] Reading Room Performing Organization Address City/State/[facility] Phone Number [facility] RIS HLA TYPING CII (05/17/2018 6:28 AM CDT) HLA-DR AG1 17 [facility] HLA TESTING HLA-DR AG2 13 [facility] HLA TESTING HLA[facility]DR AG3-1 52 [facility] HLA TESTING HLA-DR AG3-2 52 [facility] HLA TESTING HLA[facility]DR AG4-1 [facility] HLA TESTING HLA-DR AG4-2 [facility] HLA TESTING HLA[facility]DR AG5-1 [facility] HLA TESTING HLA-DR AG5-2 [facility] HLA TESTING HLA-DQA1 AG 1-1 05 [facility] HLA TESTING HLA-DQA1 AG 1-2 01 [facility] HLA TESTING HLA-DQB1 AG 1-1 2 [facility] HLA TESTING HLA-DQB1 AG 1-2 6 [facility] HLA TESTING HLA-DPA1 AG 1-1 01 [facility] TESTING HLA-DPA1 AG 1-2 01 [facility] HLA TESTING HLA[facility]DPB1 AG 1-1 02:01 [facility] HLA TESTING HLA-DPB1 AG 1-2 18:01 [facility] HLA TESTING HLA-AG Notes [facility] HLA TESTING HLA-AG Report Comments [facility] HLA TESTING Specimen Blood Narrative Performed At Disclaimer: [facility] HLA TESTING This test was developed and its performance characteristics determined by the [facility]. It has not been cleared or approved by the U.S. Food and Drug Administration. The FDA has determined that such clearance or approval is not necessary. This test is used for clinical purposes. It should not be regarded as investigational or for research. This laboratory is certified under the Clinical Laboratory Improvement Amendments of 1988 (CLIA-88) as qualified to perform high complexity clinical laboratory testing. Performing Organization Address City/State/Zipcode Phone Number [facility] TEST[facility] ONE Banner Neyda, MS: [place] [address] [id number], CLIA#[id number] CAP#[id number] UNOS#[id number] HLA TYPING CI (05/17/2018 6:28 AM CDT) HLA-A AG1 34 [facility] HLA-A AG2 36 [facility] HLA-B AG1 53 [facility] HLA-B AG2 81 [facility] HLA-C AG1 4 [facility] HLA[facility]C AG2 18 [facility] HLA[facility]B BW1 4 [facility] HLA-B BW2 6 [facility] HLA-AG Notes [facility] HLA-AG Report Comments [facility] Specimen Blood Narrative Performed At Disclaimer: [facility] This test was developed and its performance characteristics determined by the [facility]. It has not been cleared or approved by the U.S. Food and Drug Administration. The FDA has determined that such clearance or approval is not necessary. This test is used for clinical purposes. It should not be regarded as investigational or for research. This laboratory is certified under the Clinical Laboratory Improvement Amendments of 1988 (CLIA-88) as qualified to perform high complexity clinical laboratory testing. Performing Organization Address City/[facility] Phone Number [facility] ONE Atul Faye, MS: [place] [address] [id number], CLIA#[id number] CAP#[id number] UNOS#[id number] FLOW PRA CLASS II WITH REFLEX TO ANTIBODY SPECIFICITY (05/17/2018 6:28 AM CDT) Flow Class II Percent Positive 0 [facility] Flow Class Report Comments [facility] Specimen Blood Narrative Performed At Disclaimer: [facility] This test was developed and its performance characteristics determined by the [facility]. It has not been cleared or approved by the U.S. Food and Drug Administration. The FDA has determined that such clearance or approval is not necessary. This test is used for clinical purposes. It should not be regarded as investigational or for research. This laboratory is certified under the Clinical Laboratory Improvement Amendments of 1988 (CLIA-88) as qualified to perform high complexity clinical laboratory testing. Performing Organization Address City/[facility] Phone Number [facility] ONE Atul Neyda, MS: [place] [address] [id number], CLIA#[id number] CAP#[id number] UNOS#[id number] FLOW PRA CLASS I WITH REFLEX TO ANTIBODY SPECIFICITY (05/17/2018 6:28 AM CDT) Flow Class I Percent Positive 0 [facility] Flow Class Report Comments [facility] Specimen Blood Narrative Performed At Disclaimer: [facility] This test was developed and its performance characteristics determined by the [facility]. It has not been cleared or approved by the U.S. Food and Drug Administration. The FDA has determined that such clearance or approval is not necessary. This test is used for clinical purposes. It should not be regarded as investigational or for research. This laboratory is certified under the Clinical Laboratory Improvement Amendments of 1988 (CLIA-88) as qualified to perform high complexity clinical laboratory testing. Performing Organization Address City/State/[facility] Phone Number [facility] ONE Atul Neyda, MS: [place] [address] [id number], CLIA#[id number] CAP#[id number] UNOS#[id number] T Spot TB (05/17/2018 6:28 AM CDT) T-Spot TB Negative [facility] Neg Ctrl Spot Count 0 [facility] Panel A Spot 0 [facility] Panel B Spot 1 [facility] Pos Ctrl Spot Ct 0 [facility] Scan Result [facility] Specimen Blood Narrative Performed At Performing Organization Address City/[facility] Phone Number [facility] [address] [place] [address] LAB[address]ATOR[facility] [address] HIV-1 Antigen with HIV-1/2 Antibody (05/17/2018 6:28 AM CDT) HIV-1 Antigen with HIV 1&2 NON-REACTIVE Nonreactive [facility] Specimen Blood Performing Organization Address [facility] Phone Number [address] [address] CENTER Hepatitis C Antibody (05/17/2018 6:28 AM CDT) Hepatitis C Ab NON-REACTIVE Nonreactive [facility] Specimen Blood Performing Organization Address [facility]/Zipcode Phone Number [facility] [address] [place] [address] CENTER Cytomegalovirus antibody, IgM (05/17/2018 6:28 AM CDT) CMV IGM Negative Negative, Equivocal [facility] Specimen Blood Narrative Performed At CMV IgM Result Interpretation: [facility] </=0.8 Al Negative 0.9-1.0 Al Equivocal >/=1.1 Al Positive Performing Organization Address City/[facility]/Zipcode Phone Number [address] [address] [phone] [place] Hepatitis B core antibody, IgM (05/17/2018 6:28 AM CDT) Hep B C IgM NON-REACTIVE Nonreactive [facility] Specimen Blood Performing Organization Address City/[facility] Phone Number [address] [address] [place] EBV-VCA antibody, IgM (05/17/2018 6:28 AM CDT) MERVAT SMITH VIRAL CAPSID Negative Negative, Equivocal [facility] IGM [facility] Specimen Blood Narrative Performed At Mervat Smith Viral Capsid Antigen IgM Result [facility] Interpretation: </=0.8 Al Negative 0.9-1.0 Al Equivocal >/=1.1 Al Positive Performing Organization Address [facility] Phone Number [address] [address] [phone] [place] EBV-VCA antibody, IgG (05/17/2018 6:28 AM CDT) MERVAT SMITH VIRAL CAPSID Positive (A) Negative, Equivocal [facility] IGG [facility] Specimen Blood Narrative Performed At Mervat Smith Viral Capsid Antigen IgG Result [facility] Interpretation: </=0.8 Al Negative 0.9-1.0 Al Equivocal >/=1.1 Al Positive Performing Organization Address City/[facility] Cent[facility] Phone Number [address] [address] [place] Blood typing, automated (05/17/2018 6:28 AM CDT) ABO/RH AUTOMATED (BEAKER) A POSITIVE [facility] Specimen Blood Performing Organization Address [facility] Cent[facility] Phone Number [address] [address] [phone] RPR (05/17/2018 6:28 AM CDT) RPR Nonreactive Nonreactive [facility] Specimen Blood Performing Organization Address [facility] Phone Number [address] [address] [place] Hepatitis B surface antibody (05/17/2018 6:28 AM CDT) Hep B S Ab 102.7 (H) <8.0 mIU/mL [facility] Specimen Blood Performing Organization Address [facility] Phone Number [address] [address] [phone] [place] Cytomegalovirus antibody, IgG (05/17/2018 6:28 AM CDT) CYTOMEGALOVIRUS, IGG Positive (A) Negative, Equivocal [facility] Specimen Blood Narrative Performed At CMV IgG Result Interpretation: [facility] </=0.8 Al Negative 0.9-1.0 Al Equivocal >/=1.1 AlPositive Performing Organization Address [facility] Phone Number [address] [address] [phone] [place] Direct AHG (KOLBY)/Direct [place] (05/17/2018 6:28 AM CDT) Direct AHG-IGG POSITIVEComment: [facility] Microscopically Positive [facility] Direct AHG-C3B, C3D NEGATVIE [facility] Specimen Blood Performing Organization Address [facility] Phone Number [address] [address] Varicella Zoster Antibody, IgG (05/17/2018 6:28 AM CDT) Varicella IgG 3.5 [facility] Specimen Blood Narrative Performed At VARICELLA ZOSTER RESULT INTERPRETATIONS: [facility] <=0.8 AlNonreactive:Presumed non-immune to VZV 0.9-1.0 AlEquivocal >=1.1 AlReactive:Presumed immune to VZV Performing Organization Address City/[facility] Phone Number [address] [address] [phone] [place] Uric Acid (05/17/2018 6:28 AM CDT) Uric Acid 3.5 2.6 - 7.2 mg/dL [facility] Specimen Blood Performing Organization Address [facility] Phone Number [address] [address] [place] PSA (05/17/2018 6:28 AM CDT) PSA 0.5 0.0 - 4.0 ng/mL [facility] Specimen Blood Performing Organization Address [facility] Phone Number [address] [address] [place] Phosphorus (05/17/2018 6:28 AM CDT) Phosphorus 4.3 2.3 - 4.7 mg/dL [facility] Specimen Blood Performing Organization Address [facility] Phone Number [address] [address] [place] PTH, Intact (05/17/2018 6:28 AM CDT) PTH 343.1 (H) 8.5 - 72.5 pg/mL [facility] Specimen Blood Performing Organization Address [facility] Phone Number [address] [address] CENTER Lactate Dehydrogenase (LDH) (05/17/2018 6:28 AM CDT) LDH 176 125 - 220 U/L [facility] Specimen Blood Performing Organization Address [facility] Phone Number [address] [address] [phone] [place] Hemoglobin A1c (05/17/2018 6:28 AM CDT) Hemoglobin A1C 5.1 4.3 - 6.1 % [facility] Specimen Blood Performing Organization Address [facility] Cent[facility]ode Phone Number [address] [address] [phone] [place] Gamma Glutamyl Transferase (GGT) (05/17/2018 6:28 AM CDT) GGT 103 (H) 9 - 64 U/L [facility] Specimen Blood Performing Organization Address [facility] Phone Number [address] [address] [phone] [place] Lipid panel (05/17/2018 6:28 AM CDT) Triglycerides 60 mg/dL [facility] Cholesterol 128 mg/dL [facility] HDL 32 mg/dL [facility] LDL Calculated 84 mg/dL [facility] Specimen Blood Narrative Performed At [facility] Triglyceride Reference Range: Low Risk <150 [id number] High Risk 200-499 Very High Risk>=500 Cholesterol Reference Range: Low Risk <200 [id number] High Risk>240 HDL Cholesterol Reference Range: Low Risk >=60 High Risk <40 LDL Cholesterol Reference Range: Optimal<100 Near [id number] Very High >=190 Performing Organization Address [facility] Phone Number [address] [address] CENTER after 11/26/2017 Insurance Payer Benefit Plan / Group Subscriber ID Type Phone Address MEDICARE MEDICARE A B xxxxxxxxxxx Medicare Advance Directives For more information, please contact:[address] [phone] Code Status Date Activated Date Inactivated Comments Full Code 11/08/2018 6:25 PM This code status was determined by: Patient Full Code 07/05/2018 2:01 PM 07/05/2018 5:11 PM This code status was determined by: Patient
--- OUTSIDE RECORDS SUMMARY | 2018-11-27 19:22 | XMS REPORT ---
:1970 [facility] Address [address] [place] [id number] Care Team Providers Name Role Phone LANREGETACHEW JimenezDARLYN Unavailable Unavailable ONEYDA RUBIO Unavailable Unavailable MARCELA KRISHNAMURTHY Unavailable Unavailable MAGGIERAGINI MONTOYAAMIDYESI BAKER Unavailable Unavailable Problems This patient has no known problems. Allergies, Adverse Reactions, Alerts This patient has no known allergies or adverse reactions. Medications This patient has no known medications. Results Test Description Test Time Test Comments Text Results Atomic Results Result Comments CBC (HEMOGRAM ONLY) 2018-11-11 06:18:00 Test Item Value Reference Range Comments WHITE BLOOD CELL COUNT (BEAKER) (test hihw=287) 7.7 K/ L 3.5-10.5 RED BLOOD CELL COUNT (BEAKER) (test fpzc=400) 2.68 M/ L 4.63-6.08 HEMOGLOBIN (BEAKER) (test epug=987) 6.2 GM/DL 13.7-17.5 HEMATOCRIT (BEAKER) (test aifd=928) 19.2 % 40.1-51.0 MEAN CORPUSCULAR VOLUME (BEAKER) (test xlfu=863) 71.6 fL 79.0-92.2 MEAN CORPUSCULAR HEMOGLOBIN (BEAKER) (test tpud=730) 23.1 pg 25.7-32.2 MEAN CORPUSCULAR HEMOGLOBIN CONC (BEAKER) (test zfdj=687) 32.3 GM/DL 32.3- 36.5 RED CELL DISTRIBUTION WIDTH (BEAKER) (test oeyc=103) 19.1 % 11.6-14.4 PLATELET COUNT (BEAKER) (test vwhu=612) 181 K/CU MM 150-450 MEAN PLATELET VOLUME (BEAKER) (test nsbo=361) 11.3 fL 9.4-12.4 NUCLEATED RED BLOOD CELLS (BEAKER) (test wpev=489) 0 /100 WBC 0-0 BASIC METABOLIC [id number] 06:11:00 Test Item Value Reference Range Comments SODIUM (BEAKER) (test 136 meq/L 136-145 nipj=584) POTASSIUM (BEAKER) (test 4.9 meq/L 3.5-5.1 mdtb=095) CHLORIDE (BEAKER) (test 98 meq/L 98-107 hbsj=695) CO2 (BEAKER) (test 28 meq/L 22-29 oquz=376) BLOOD UREA NITROGEN 47 mg/dL 7-21 (BEAKER) (test hxbr=542) CREATININE (BEAKER) (test 10.88 mg/dL 0.57-1.25 edfx=042) GLUCOSE RANDOM (BEAKER) 81 mg/dL 70-105 (test tksd=931) CALCIUM (BEAKER) (test 9.3 mg/dL 8.4-10.2 heou=360) EGFR (BEAKER) (test 6 mL/min/1.73 sq m ESTIMATED GFR IS NOT jhio=2108) ACCURATE CREATININE CLEARANCE IN PREDICTING GLOMERULAR FILTRATION RATE. ESTIMATED GFR IS NOT APPLICABLE FOR DIALYSIS PATIENTS. HEMOGLOBIN AND [id number] 20:24:00 Test Item Value Reference Range Comments HEMOGLOBIN (BEAKER) (test clnm=029) 6.8 GM/DL 13.7-17.5 HEMATOCRIT (BEAKER) (test daxv=242) 21.5 % 40.1-51.0 HEMOGLOBIN AND [id number] 12:44:00 Test Item Value Reference Range Comments HEMOGLOBIN (BEAKER) (test cmnz=700) 6.9 GM/DL 13.7-17.5 HEMATOCRIT (BEAKER) (test yges=799) 21.2 % 40.1-51.0 BASIC METABOLIC [id number] 05:40:00 Test Item Value Reference Range Comments SODIUM (BEAKER) (test 137 meq/L 136-145 uitg=746) POTASSIUM (BEAKER) (test 4.1 meq/L 3.5-5.1 twou=543) CHLORIDE (BEAKER) (test 99 meq/L 98-107 jnsy=265) CO2 (BEAKER) (test 29 meq/L 22-29 bpxh=331) BLOOD UREA NITROGEN 33 mg/dL 7-21 (BEAKER) (test yafq=812) CREATININE (BEAKER) (test 8.33 mg/dL 0.57-1.25 zmcc=318) GLUCOSE RANDOM (BEAKER) 84 mg/dL 70-105 (test irbd=313) CALCIUM (BEAKER) (test 9.3 mg/dL 8.4-10.2 qehu=397) EGFR (BEAKER) (test 8 mL/min/1.73 sq m ESTIMATED GFR IS NOT wzqa=9115) ACCURATE CREATININE CLEARANCE IN PREDICTING GLOMERULAR FILTRATION RATE. ESTIMATED GFR IS NOT APPLICABLE FOR DIALYSIS PATIENTS. CBC (HEMOGRAM ONLY)2018-11-10 04:30:00 Test Item Value Reference Range Comments WHITE BLOOD CELL COUNT (BEAKER) (test xwop=950) 6.7 K/ L 3.5-10.5 RED BLOOD CELL COUNT (BEAKER) (test jpbf=134) 3.10 M/ L 4.63-6.08 HEMOGLOBIN (BEAKER) (test tkgh=416) 6.9 GM/DL 13.7-17.5 HEMATOCRIT (BEAKER) (test qqrh=534) 21.8 % 40.1-51.0 MEAN CORPUSCULAR VOLUME (BEAKER) (test kfav=078) 70.3 fL 79.0-92.2 MEAN CORPUSCULAR HEMOGLOBIN (BEAKER) (test 22.3 pg 25.7-32.2 cawt=718) MEAN CORPUSCULAR HEMOGLOBIN CONC (BEAKER) (test 31.7 GM/DL 32.3-36.5 ldem=753) RED CELL DISTRIBUTION WIDTH (BEAKER) (test 18.4 % 11.6-14.4 qeku=122) PLATELET COUNT (BEAKER) (test grzj=714) 184 K/CU MM 150-450 NUCLEATED RED BLOOD CELLS (BEAKER) (test 0 /100 WBC 0-0 ivwq=698) HEPATITIS B SURFACE [id number] 16:17:00 Test Item Value Reference Range Comments HEPATITIS B SURFACE ANTIGEN (2) (BEAKER) (test Nonreactive Nonreactive qzmn=0167) For chronic HD patients, draw HBsAg with each admission then every 30 days.PFA- [id number] 10:52:00 Test Item Value Reference Range Comments COL/EPI CLOSURE TIME (BEAKER) (test ahzb=3102) > Seconds 78-191 COL/ADP CLOSURE TIME (BEAKER) (test emob=4526) > Seconds 43-122 PLATELET COUNT AGG (BEAKER) (test lhob=7447) 200 K/CU MM 150-450 Hematocrit <35% or platelet count <150,000/CU MM may contribute to falsely elevated PFA-100.BASIC METABOLIC [id number] 06:17:00 Test Item Value Reference Range Comments SODIUM (BEAKER) (test 133 meq/L 136-145 slao=509) POTASSIUM (BEAKER) (test 5.0 meq/L 3.5-5.1 wzhm=070) CHLORIDE (BEAKER) (test 100 meq/L 98-107 nvnx=884) CO2 (BEAKER) (test 24 meq/L 22-29 pxdo=539) BLOOD UREA NITROGEN 66 mg/dL 7-21 (BEAKER) (test lycb=223) CREATININE (BEAKER) (test 13.08 mg/dL 0.57-1.25 fbly=716) GLUCOSE RANDOM (BEAKER) 84 mg/dL 70-105 (test kuym=314) CALCIUM (BEAKER) (test 9.0 mg/dL 8.4-10.2 hgsm=500) EGFR (BEAKER) (test 5 mL/min/1.73 sq m ESTIMATED GFR IS NOT wjch=4386) ACCURATE CREATININE CLEARANCE IN PREDICTING GLOMERULAR FILTRATION RATE. ESTIMATED GFR IS NOT APPLICABLE FOR DIALYSIS PATIENTS. CBC (HEMOGRAM ONLY)2018-11-09 05:48:00 Test Item Value Reference Range Comments WHITE BLOOD CELL COUNT (BEAKER) (test irtv=044) 7.3 K/ L 3.5-10.5 RED BLOOD CELL COUNT (BEAKER) (test etzn=845) 3.65 M/ L 4.63-6.08 HEMOGLOBIN (BEAKER) (test agji=408) 8.3 GM/DL 13.7-17.5 HEMATOCRIT (BEAKER) (test eyic=295) 25.8 % 40.1-51.0 MEAN CORPUSCULAR VOLUME (BEAKER) (test bowu=549) 70.7 fL 79.0-92.2 MEAN CORPUSCULAR HEMOGLOBIN (BEAKER) (test 22.7 pg 25.7-32.2 kuon=134) MEAN CORPUSCULAR HEMOGLOBIN CONC (BEAKER) (test 32.2 GM/DL 32.3-36.5 vgan=593) RED CELL DISTRIBUTION WIDTH (BEAKER) (test 18.5 % 11.6-14.4 cdnb=887) PLATELET COUNT (BEAKER) (test vulq=416) 190 K/CU MM 150-450 MEAN PLATELET VOLUME (BEAKER) (test uirw=529) 10.4 fL 9.4-12.4 NUCLEATED RED BLOOD CELLS (BEAKER) (test 0 /100 WBC 0-0 nzyi=722) [id number] 18:27:00 Test Item Value Reference Range Comments ACTIVATED CLOTTING TIME 301 sec [facility] AT [facility] [address] [facility] (BEAKER) (test hqrn=764) [facility] [address] BASIC METABOLIC [id number] 12:09:00 Test Item Value Reference Range Comments SODIUM (BEAKER) (test 135 meq/L 136-145 zgwa=902) POTASSIUM (BEAKER) (test 4.8 meq/L 3.5-5.1 ecmn=864) CHLORIDE (BEAKER) (test 100 meq/L 98-107 ttay=516) CO2 (BEAKER) (test 24 meq/L 22-29 gicj=314) BLOOD UREA NITROGEN 54 mg/dL 7-21 (BEAKER) (test llno=215) CREATININE (BEAKER) (test 11.46 mg/dL 0.57-1.25 mdwq=435) GLUCOSE RANDOM (BEAKER) 84 mg/dL 70-105 (test mgkg=289) CALCIUM (BEAKER) (test 9.4 mg/dL 8.4-10.2 odxq=345) EGFR (BEAKER) (test 6 mL/min/1.73 sq m ESTIMATED GFR IS NOT hrdk=1183) ACCURATE CREATININE CLEARANCE IN PREDICTING GLOMERULAR FILTRATION RATE. ESTIMATED GFR IS NOT APPLICABLE FOR DIALYSIS PATIENTS. CBC W/PLT COUNT & AUTO [id number] 12:07:00 Test Item Value Reference Range Comments WHITE BLOOD CELL COUNT (BEAKER) (test dtmz=061) 6.5 K/ L 3.5-10.5 RED BLOOD CELL COUNT (BEAKER) (test ksci=919) 4.17 M/ L 4.63-6.08 HEMOGLOBIN (BEAKER) (test lswd=730) 9.5 GM/DL 13.7-17.5 HEMATOCRIT (BEAKER) (test fmcb=322) 29.2 % 40.1-51.0 MEAN CORPUSCULAR VOLUME (BEAKER) (test lzyv=569) 70.0 fL 79.0-92.2 MEAN CORPUSCULAR HEMOGLOBIN (BEAKER) (test 22.8 pg 25.7-32.2 lcvd=610) MEAN CORPUSCULAR HEMOGLOBIN CONC (BEAKER) (test 32.5 GM/DL 32.3-36.5 lkgl=427) RED CELL DISTRIBUTION WIDTH (BEAKER) (test 18.3 % 11.6-14.4 oyma=998) PLATELET COUNT (BEAKER) (test ijvu=641) 199 K/CU MM 150-450 MEAN PLATELET VOLUME (BEAKER) (test dbgp=599) 10.1 fL 9.4-12.4 NUCLEATED RED BLOOD CELLS (BEAKER) (test 0 /100 WBC 0-0 eftp=193) NEUTROPHILS RELATIVE PERCENT (BEAKER) (test 57 % flog=579) LYMPHOCYTES RELATIVE PERCENT (BEAKER) (test 20 % trwe=794) MONOCYTES RELATIVE PERCENT (BEAKER) (test 20 % bhnr=859) EOSINOPHILS RELATIVE PERCENT (BEAKER) (test 2 % qmmw=210) BASOPHILS RELATIVE PERCENT (BEAKER) (test 1 % qxnk=922) NEUTROPHILS ABSOLUTE COUNT (BEAKER) (test 3.71 K/ L 1.78-5.38 vcdr=969) LYMPHOCYTES ABSOLUTE COUNT (BEAKER) (test 1.31 K/ L 1.32-3.57 kzrl=509) MONOCYTES ABSOLUTE COUNT (BEAKER) (test 1.30 K/ L 0.30-0.82 joom=576) EOSINOPHILS ABSOLUTE COUNT (BEAKER) (test 0.11 K/ L 0.04-0.54 cipx=325) BASOPHILS ABSOLUTE COUNT (BEAKER) (test 0.04 K/ L 0.01-0.08 prbw=598) IMMATURE GRANULOCYTES-RELATIVE PERCENT (BEAKER) 1 % 0-1 (test gqyx=8571) [id number] 11:58:00 Test Item Value Reference Range Comments PROTIME (BEAKER) (test divr=144) 16.1 seconds 11.7-14.7 INR (BEAKER) (test tmdg=185) 1.3 <=5.9 PARTIAL THROMBOPLASTIN TIME (BEAKER) (test 38.0 seconds 22.5-36.0 dvpd=216) RECOMMENDED COUMADIN/WARFARIN INR THERAPY RANGESSTANDARD DOSE: 2.0 - 3.0 Includes: PROPHYLAXIS forvenous thrombosis, systemic embolization; TREATMENT for venous thrombosis and/or pulmonary embolus.HIGH RISK: Target INR is 2.5-3.5 for patients with mechanical heart valves.OCCULT BLOOD, [id number] 11:49:00 Test Item Value Reference Range Comments FECAL OCCULT BLOOD (BEAKER) (test yrdm=431) Negative Negative OCCULT BLOOD, [id number] 11:49:00 Test Item Value Reference Range Comments FECAL OCCULT BLOOD (BEAKER) (test jksi=119) Negative Negative TISSUE [id number] 16:02:00Surgical Pathology Report Case: [id number] Authorizing Provider: Marcela Krishnamurthy MD Collected: 07/05/2018 1624 Ordering Location: [place] [address] OP Received: 07/05/2018 1620 Pathologist: Julia Oconnor MD Specimen: Biopsy, Liver LIVER, TRANSJUGULAR NEEDLE BIOPSIES - PERISINUSOIDAL AND PORTAL/PERIPORTAL FIBROSIS- NO DEFINITIVE BRIDGING FIBROSISOR CIRRHOSIS SEEN- MILD SINUSOIDAL DILATATION- SEE COMMENT Signing Pathologist Direct Phone Line: [phone] signed by Julia Oconnor MD on 07/13/2018 at 4:02 PMZone 3 sinusoidaldilatation could be secondary to drug effect, chronic venous outflow obstruction or impaired portal venous blood flow. In some cases, it is nonspecific with no clinical relevance. Clinical correlation is suggested. [id number], [address] J1Lopokjvjb of liver, renal transplant workup Transjugular liver biopsy The specimen is received in a formalin-filled container labeled with the patient's information and labeled "transjugular liver biopsy" and consists of three round core biopsies ranging in length from 0.5to 1 cm, submitted entirely in A1. CG/ew Section shows multiple variably sized cores of liver parenchyma with greater than 10 portal tracts and is adequate for evaluation. No steatosis, ballooning degeneration or Irma Denk hyaline is present. No cholestasis or acidophilic bodies are seen. No significant portal inflammation is noted. The bile ducts are preserved and unremarkable. Trichrome stain shows perisinusoidal and portal/periportal fibrosis. Iron stain shows 2+ staining of the hepatocytes and there is iron accumulation in the kupffer cells. Iron is also present in portal macrophages and endothelial cells. No hyaline globules are seen on PASD stain. Special stains: trichrome, reticulin, iron and PAS with diastase.ANG, TRANSCATHETER [id number] 17:44:00REFERRING MD: Sally MURTHYDDAVP (Desmopressin) 20 (twenty) micrograms intravenous slow infusion over 30 minutes one time only (to be given 30 minutes prior to transjugular liver biopsy to prevent bleeding)0.3 mcg/ kgSpecify Organ:->liver biopsy as part of renal transplant workup, please measure pressure gradientReason for Exam:->liver biopsy as part of renal transplant workup, please measure pressure gradientFINAL REPORT Transjugular liver biopsy, 07/05/2018. History: Renal transplant workup. Modality: Fluoroscopy. Sedation: Versed 1.5 mg and fentanyl 75 mcg was given intravenously for conscious sedation. Vital signs were monitored throughout the procedure by a nurse, and remained stable. Physician intra-service time was 35 min. Electrical Plumbing Supervisor: Jagdeep Jiang MD. Material Mover: None. Approach: Right internal jugular vein Estimated blood loss : < 5 cc. Specimen: 3 19-gauge core specimens placed within formalin and sent to pathology. Fluoroscopy Time: 8.8 min.Reference Air Kerma (Ka, r): 200 mGy. Technique: Her prescription IR Prep Ultrasound evaluation showed a patent and compressible right internal jugular vein, which was punctured under direct real-time ultrasound guidance with a micropuncture needle. An ultrasound image was saved to PACS. A 0.018 inch wire was placed through the needle into the right atrium. A 4 Scottish micropuncture sheath was placed. A 0.035 inch J-wire was placed through the micropuncture sheath and the sheath was exchanged for a 9 Scottish sheath. A 5 Scottish angled tip catheter was used to select the right hepatic vein. Venogram was performed. Pressures were obtained through the catheter with measurements as follows: wedged hepatic - 24 mmHg, free hepatic - 17, and right atrium - 16. A long metal reinforced 7 Scottish sheath was placed through the 9 Scottish sheath into the right hepatic vein. A long 19-gauge core biopsy needle was then placed through sheath with4 core samples obtained within the liver. The needle and sheath were removed. Hemostasis was obtained with manual compression. The patient tolerated the procedure well and left the department in the same condition. Findings: Venogram demonstrates patent right hepatic vein and intrahepatic IVC. Impression: Successful, uncomplicated transjugular liver biopsy, using fluoroscopic guidance and conscious sedation. HVPG 7 mmHg. Signed: Jagdeep Jiang MDReport Verified Date/Time: 07/05/2018 17:44:43 Reading Location: [facility] P048 Angio Body Reading Room COMPREHENSIVE METABOLIC [id number] 10:35:00 Test Item Value Reference Range Comments TOTAL PROTEIN (BEAKER) 7.7 gm/dL 6.0-8.3 (test izee=795) ALBUMIN (BEAKER) (test 3.8 g/dL 3.5-5.0 obkc=7335) ALKALINE PHOSPHATASE 74 U/L 40-150 (BEAKER) (test iqss=711) BILIRUBIN TOTAL (BEAKER) 0.7 mg/dL 0.2-1.2 (test qxwm=158) SODIUM (BEAKER) (test 138 meq/L 136-145 bonn=729) POTASSIUM (BEAKER) (test 5.2 meq/L 3.5-5.1 ymbw=969) CHLORIDE (BEAKER) (test 103 meq/L 98-107 piie=769) CO2 (BEAKER) (test 25 meq/L 22-29 kebb=372) BLOOD UREA NITROGEN 77 mg/dL 7-21 (BEAKER) (test xqer=905) CREATININE (BEAKER) (test 15.84 mg/dL 0.57-1.25 qtra=928) GLUCOSE RANDOM (BEAKER) 88 mg/dL 70-105 (test ncsl=477) CALCIUM (BEAKER) (test 9.2 mg/dL 8.4-10.2 buwj=802) AST (SGOT) (BEAKER) (test 17 U/L 5-34 rfki=384) ALT (SGPT) (BEAKER) (test 9 U/L 6-55 ftaf=102) EGFR (BEAKER) (test 4 mL/min/1.73 sq m ESTIMATED GFR IS NOT cusp=9064) ACCURATE CREATININE CLEARANCE IN PREDICTING GLOMERULAR FILTRATION RATE. ESTIMATED GFR IS NOT APPLICABLE FOR DIALYSIS PATIENTS. PROTHROMBIN TIME/[id number] 10:27:00 Test Item Value Reference Range Comments PROTIME (BEAKER) (test szfr=173) 15.7 seconds 11.7-14.7 INR (BEAKER) (test wlnk=200) 1.3 <=5.9 RECOMMENDED COUMADIN/WARFARIN INR THERAPY RANGESSTANDARD DOSE: 2.0 - 3.0 Includes: PROPHYLAXIS forvenous thrombosis, systemic embolization; TREATMENT for venous thrombosis and/or pulmonary embolus.HIGH RISK: Target INR is 2.5-3.5 for patients with mechanical heart valves.[id number] 10:27:00 Test Item Value Reference Range Comments PARTIAL THROMBOPLASTIN TIME (BEAKER) (test 33.8 seconds 22.5-36.0 qeqr=162) PLATELET [id number] 10:14:00 Test Item Value Reference Range Comments PLATELET COUNT (BEAKER) (test mphs=589) 187 K/CU MM 150-450 ANTI-NUCLEAR ANTIBODY (AZIZA)2018-06-16 05:48:00 Test Item Value Reference Range Comments ANTI-NUCLEAR ANTIBODY (AZIZA) (BEAKER) (test Negative Negative ivad=308) Test performed by IFA method.Test performed by IFA method.HEPATITIS A ANTIBODY, [id number] 20:09:00 Test Item Value Reference Range Comments HEPATITIS A IGG ANTIBODY (BEAKER) (test qkrc=0523) Reactive Nonreactive HEPATITIS B CORE ANTIBODY, [id number] 19:00:00 Test Item Value Reference Range Comments HEPATITIS B CORE TOTAL ANTIBODY (BEAKER) (test Nonreactive Nonreactive bnud=536) [id number] 17:43:00 Test Item Value Reference Range Comments FERRITIN (BEAKER) (test lqai=062) 482 ng/mL 5-275 IRON, TIBC, % SAT. (WITHOUT FERRITIN)2018-06-14 17:28:00 Test Item Value Reference Range Comments IRON (BEAKER) (test edyu=351) 38 ug/dL 40-160 TOTAL IRON BINDING CAPACITY (BEAKER) (test 231 ug/dL 250-450 jnvj=684) IRON % SATURATION (2) (BEAKER) (test encx=2568) 16 % 20-55 COMPREHENSIVE METABOLIC [id number] 17:19:00 Test Item Value Reference Range Comments TOTAL PROTEIN (BEAKER) 8.9 gm/dL 6.0-8.3 (test fzfr=975) ALBUMIN (BEAKER) (test 4.3 g/dL 3.5-5.0 lotx=5641) ALKALINE PHOSPHATASE 86 U/L 40-150 (BEAKER) (test abyx=592) BILIRUBIN TOTAL (BEAKER) 0.8 mg/dL 0.2-1.2 (test bffd=221) SODIUM (BEAKER) (test 135 meq/L 136-145 jnmp=006) POTASSIUM (BEAKER) (test 5.4 meq/L 3.5-5.1 ntsj=810) CHLORIDE (BEAKER) (test 98 meq/L 98-107 tvmh=139) CO2 (BEAKER) (test 22 meq/L 22-29 opjf=001) BLOOD UREA NITROGEN 84 mg/dL 7-21 (BEAKER) (test oedl=330) CREATININE (BEAKER) (test 14.96 mg/dL 0.57-1.25 aqeb=695) GLUCOSE RANDOM (BEAKER) 83 mg/dL 70-105 (test iyqc=394) CALCIUM (BEAKER) (test 10.2 mg/dL 8.4-10.2 bfmg=614) AST (SGOT) (BEAKER) (test 20 U/L 5-34 yzna=447) ALT (SGPT) (BEAKER) (test 8 U/L 6-55 uehz=173) EGFR (BEAKER) (test 4 mL/min/1.73 sq m ESTIMATED GFR IS NOT rnjd=4422) ACCURATE CREATININE CLEARANCE IN PREDICTING GLOMERULAR FILTRATION RATE. ESTIMATED GFR IS NOT APPLICABLE FOR DIALYSIS PATIENTS. BILIRUBIN, [id number] 17:18:00 Test Item Value Reference Range Comments BILIRUBIN DIRECT (BEAKER) (test rxai=500) 0.4 mg/dL 0.1-0.5 [id number] 17:17:00 Test Item Value Reference Range Comments ALPHA-1 ANTITRYPSIN (BEAKER) (test rwvz=124) 198.30 mg/dL 90.00-200.00 CBC W/PLT COUNT & AUTO [id number] 17:08:00 Test Item Value Reference Range Comments WHITE BLOOD CELL COUNT 8.4 K/ L 3.5-10.5 (BEAKER) (test pfvk=209) RED BLOOD CELL COUNT (BEAKER) 4.45 M/ L 4.63-6.08 (test tqhk=626) HEMOGLOBIN (BEAKER) (test 9.7 GM/DL 13.7-17.5 wwkx=805) HEMATOCRIT (BEAKER) (test 30.3 % 40.1-51.0 hwdm=668) MEAN CORPUSCULAR VOLUME 68.1 fL 79.0-92.2 (BEAKER) (test peny=867) MEAN CORPUSCULAR HEMOGLOBIN 21.8 pg 25.7-32.2 (BEAKER) (test tjxj=452) MEAN CORPUSCULAR HEMOGLOBIN 32.0 GM/DL 32.3-36.5 CONC (BEAKER) (test vxry=729) RED CELL DISTRIBUTION WIDTH 19.6 % 11.6-14.4 (BEAKER) (test jcuw=441) PLATELET COUNT (BEAKER) (test 259 K/CU MM 150-450 qpax=318) MEAN PLATELET VOLUME (BEAKER) fL 9.4-12.4 Unable to report due to (test gihx=156) abnormal Platelet population distribution. NUCLEATED RED BLOOD CELLS 0 /100 WBC 0-0 (BEAKER) (test vgoj=797) NEUTROPHILS RELATIVE PERCENT 61 % (BEAKER) (test rwjw=179) LYMPHOCYTES RELATIVE PERCENT 20 % (BEAKER) (test lhpn=021) MONOCYTES RELATIVE PERCENT 15 % (BEAKER) (test xvhw=052) EOSINOPHILS RELATIVE PERCENT 3 % (BEAKER) (test tkxb=523) BASOPHILS RELATIVE PERCENT 1 % (BEAKER) (test otth=737) NEUTROPHILS ABSOLUTE COUNT 5.14 K/ L 1.78-5.38 (BEAKER) (test lsel=694) LYMPHOCYTES ABSOLUTE COUNT 1.69 K/ L 1.32-3.57 (BEAKER) (test zhev=362) MONOCYTES ABSOLUTE COUNT 1.23 K/ L 0.30-0.82 (BEAKER) (test nosx=011) EOSINOPHILS ABSOLUTE COUNT 0.23 K/ L 0.04-0.54 (BEAKER) (test rign=034) BASOPHILS ABSOLUTE COUNT 0.06 K/ L 0.01-0.08 (BEAKER) (test kzri=393) IMMATURE GRANULOCYTES-RELATIVE 1 % 0-1 PERCENT (BEAKER) (test ikwb=7018) VARICELLA ZOSTER ANTIBODY, [id number] 11:37:00 Test Item Value Reference Range Comments VARICELLA ZOSTER IGG (AL) (BEAKER) (test eeno=0482) 3.5 VARICELLA ZOSTER RESULT INTERPRETATIONS: <=0.8 Al Nonreactive: Presumed non-immune to VZV 0.9-1.0 Al Equivocal >=1.1 Al Reactive: Presumed immune to [id number] 07:47:00 Test Item Value Reference Range Comments RPR SCREEN (PREMA) (test iewl=168) Nonreactive Nonreactive CT, CTA [id number] 17:24:00Reason for Exam:->esrd; eval for renal txpAddendum BeginsREPORT STATUS:A Addendum:There is marked ascites. There is some irregularity of the liver margin and clinical correlation is needed if cirrhosis is suspected clinically. There is no evidence of splenomegaly. To further characterize the liver parenchyma and excludeneoplastic processes correlation with a triple phase CT of the liver or MR after paracentesis is recommended if clinically appropriate. Vascular shunting is suspected.Calcific changes in the pancreas may be secondary to prior pancreatitis. Signed: Anabela Glover MDReport Verified Date/Time: 2017 17:24:10 Reading Location: [place] [address] Angio Body Reading RoomAddendum EndsFINAL REPORT CT angiography of the abdominal aorta [...] passage of intravenous contrast material. Multi-planar 3-D volume- rendering reconstruction was performed using an independent workstation interactively by theinterpreting physician as well as the 3-D specialist [...] predominantly in the common iliac arteries bilaterally. Lens Examiner dimensions of the left and the right external iliac arteries are 8-9 and 8 mm, respectively. Similarly , the associated pelvic veins are patent with no venous thrombosis identified. Representativedimensions of the left and the right external [...] that drain normally into inferior vena cava. NON- VASCULAR: The lung bases are unremarkable. No pleural effusion is identified. In the abdomen, the liver and spleen appears unremarkable. There is tiny patchy enhancement identified in the right hepatic lobe at image 66 to represent a vascular shunting. There is another enhancement identified, in the caudate lobe , for example image 62; in the second [...] bowel dilation is identified. Small umbilical hernia withfluid is noted. The bladder is not distended. The prostate gland appears grossly unremarkable. No free air is identified abdomen and pelvis. No significant retroperitoneal adenopathy is identified, however, some small nonspecific para- aortic lymph nodes are seen. In the bony [...] no arterial stenosis or venous thrombosis identified. Lens Examiner dimensions of the left and the right external iliac arteries and veins are as described above. 2. Patent mesenteric and renal arteries. 3. Other findings asdescribed above. Ascites. 4. An addendum will be dictated regarding the non-vascular findings by the [employer] Service Radiologist. Signed: Casey Martinort Verified Date/Time: 05/17/2018 08:26:59 Reading Location: [place] [address] Cardiology MRI CYTOMEGALOVIRUS ANTIBODY, [id number] 12:29:00 Test Item Value Reference Range Comments CYTOMEGALOVIRUS, IGG (BEAKER) (test ivkz=2721) Positive Negative, Equivocal CMV IgG Result Interpretation: </=0.8 Al Negative 0.9-1.0 Al Equivocal &gt ;/=1.1 Al PositiveCYTOMEGALOVIRUS ANTIBODY, [id number] 12:29:00 Test Item Value Reference Range Comments CYTOMEGALOVIRUS IGM ANTIBODY (BEAKER) (test Negative Negative, Equivocal aguf=0629) CMV IgM Result Interpretation: </=0.8 Al Negative 0.9-1.0 Al Equivocal >/=1.1 Al PositiveEBV ANTIBODY, [id number] 12:29:00 Test Item Value Reference Range Comments MERVAT SMITH VIRAL CAPSID ANTIGEN IGG (BEAKER) Positive Negative, Equivocal (test pkkb=0598) Mervat Smith Viral Capsid Antigen IgG Result Interpretation: </=0.8 Al Negative 0.9-1.0 Al Equivocal >/=1.1 Al PositiveEBV ANTIBODY, [id number] 12:29:00 Test Item Value Reference Range Comments MERVAT SMITH VIRAL CAPSID ANTIGEN IGM (BEAKER) Negative Negative, Equivocal (test ojnx=2850) Mervat Smith Viral Capsid Antigen IgM Result Interpretation: </=0.8 Al Negative 0.9-1.0 Al Equivocal >/=1.1 Al PositiveHEMOGLOBIN [id number] 10:54:00 Test Item Value Reference Range Comments HEMOGLOBIN A1C (BEAKER) (test fjqd=162) 5.1 % 4.3-6.1 HEPATITIS B SURFACE [id number] 08:28:00 Test Item Value Reference Range Comments HEPATITIS B SURFACE ANTIGEN (2) (BEAKER) (test Nonreactive Nonreactive tlxq=4029) HEPATITIS B SURFACE [id number] 08:28:00 Test Item Value Reference Range Comments HEPATITIS B SURFACE ANTIBODY (BEAKER) (test 102.7 mIU/mL <8.0 zfpy=455) HEPATITIS B CORE ANTIBODY, [id number] 08:28:00 Test Item Value Reference Range Comments HEPATITIS B CORE IGM ANTIBODY (BEAKER) (test Nonreactive Nonreactive gksi=728) HEPATITIS C [id number] 08:28:00 Test Item Value Reference Range Comments HEPATITIS C ANTIBODY (BEAKER) (test fpfx=394) Nonreactive Nonreactive HIV-1 ANTIGEN WITH HIV-1/2 [id number] 08:28:00 Test Item Value Reference Range Comments HIV-1 ANTIGEN WITH HIV 1\\T\\2 ANTIBODY (2) Nonreactive Nonreactive (BEAKER) (test hhqy=4099) [id number] 08:03:00 Test Item Value Reference Range Comments PROSTATE SPECIFIC ANTIGEN (BEAKER) (test tojd=654) 0.5 ng/mL 0.0-4.0 RAD, CHEST, 2 [id number] 08:03:00Reason for Exam:->esrd; eval for renal txpFINAL REPORT Chest two views INDICATION: ESRD, renal transplant evaluation. COMPARISON: None available IMPRESSION: The cardiac silhouette is enlarged. There is pulmonary vascularcongestion with interstitial and perihilar opacities suggestive of edema. Trace right pleural effusion is present. The aorta is mildly ectatic/tortuous. Mild right convex spine curvature is present. Nopneumothorax is seen. Signed: Ying Avilezort Verified Date/Time: 05/17/2018 08:03:33Reading Location: [facility] Radiology Reading Room COMPREHENSIVE METABOLIC [id number] 07:52:00 Test Item Value Reference Range Comments TOTAL PROTEIN (BEAKER) 8.4 gm/dL 6.0-8.3 (test gzqz=308) ALBUMIN (BEAKER) (test 4.2 g/dL 3.5-5.0 vcjp=1826) ALKALINE PHOSPHATASE 99 U/L 40-150 (BEAKER) (test oogf=677) BILIRUBIN TOTAL (BEAKER) 0.7 mg/dL 0.2-1.2 (test ekwi=335) SODIUM (BEAKER) (test 134 meq/L 136-145 syha=671) POTASSIUM (BEAKER) (test 4.6 meq/L 3.5-5.1 rytk=298) CHLORIDE (BEAKER) (test 98 meq/L 98-107 spmn=373) CO2 (BEAKER) (test 25 meq/L 22-29 omau=089) BLOOD UREA NITROGEN 31 mg/dL 7-21 (BEAKER) (test tnpx=916) CREATININE (BEAKER) (test 7.92 mg/dL 0.57-1.25 ofjl=990) GLUCOSE RANDOM (BEAKER) 85 mg/dL 70-105 (test uwqa=198) CALCIUM (BEAKER) (test 9.6 mg/dL 8.4-10.2 qoev=363) AST (SGOT) (BEAKER) (test 26 U/L 5-34 gadn=986) ALT (SGPT) (BEAKER) (test 15 U/L 6-55 vsvy=011) EGFR (BEAKER) (test 9 mL/min/1.73 sq m ESTIMATED GFR IS NOT pfdl=1300) ACCURATE CREATININE CLEARANCE IN PREDICTING GLOMERULAR FILTRATION RATE. ESTIMATED GFR IS NOT APPLICABLE FOR DIALYSIS PATIENTS. PTH, [id number] 07:51:00 Test Item Value Reference Range Comments PARATHYROID HORMONE INTACT (BEAKER) (test 343.1 pg/mL 8.5-72.5 tmze=336) URIC [id number] 07:49:00 Test Item Value Reference Range Comments URIC ACID (BEAKER) (test usge=902) 3.5 mg/dL 2.6-7.2 [id number] 07:49:00 Test Item Value Reference Range Comments PHOSPHORUS (BEAKER) (test xvgi=628) 4.3 mg/dL 2.3-4.7 LIPID [id number] 07:49:00 Test Item Value Reference Range Comments TRIGLYCERIDES (BEAKER) (test ezbd=580) 60 mg/dL CHOLESTEROL (BEAKER) (test sidm=137) 128 mg/dL HDL CHOLESTEROL (BEAKER) (test xyvw=811) 32 mg/dL LDL CHOLESTEROL CALCULATED (BEAKER) (test 84 mg/dL vpkj=441) Triglyceride Reference Range: Low Risk <150 Borderline 150- 199 High Risk 200-499 Very High Risk >=500Cholesterol Reference Range: Low Risk <200 Borderline 200-239 High Risk > 240HDL Cholesterol Reference Range: Low Risk >=60 High Risk <40LDL Cholesterol Reference Range: Optimal <100 Near Optimal 100-129 Borderline 130-159 High 160-189 Very High >=190GAMMA GLUTAMYL TRANSFERASE (GGT)2018-05-17 07:49:00 Test Item Value Reference Range Comments GAMMA GLUTAMYL TRANSFERASE (BEAKER) (test zavd=053) 103 U/L 9-64 LACTATE DEHYDROGENASE (LDH)2018-05-17 07:49:00 Test Item Value Reference Range Comments LACTATE DEHYDROGENASE (BEAKER) (test ogzh=760) 176 U/L 125-220 CBC W/PLT COUNT & AUTO [id number] 07:42:00 Test Item Value Reference Range Comments WHITE BLOOD CELL COUNT 6.9 K/ L 3.5-10.5 (BEAKER) (test euwc=574) RED BLOOD CELL COUNT (BEAKER) 5.08 M/ L 4.63-6.08 (test myvy=426) HEMOGLOBIN (BEAKER) (test 11.5 GM/DL 13.7-17.5 ypqn=062) HEMATOCRIT (BEAKER) (test 35.6 % 40.1-51.0 pijb=323) MEAN CORPUSCULAR VOLUME 70.1 fL 79.0-92.2 (BEAKER) (test pelh=993) MEAN CORPUSCULAR HEMOGLOBIN 22.6 pg 25.7-32.2 (BEAKER) (test ywsh=861) MEAN CORPUSCULAR HEMOGLOBIN 32.3 GM/DL 32.3-36.5 CONC (BEAKER) (test vkpp=240) RED CELL DISTRIBUTION WIDTH 19.5 % 11.6-14.4 (BEAKER) (test entj=660) PLATELET COUNT (BEAKER) (test 201 K/CU MM 150-450 rgzt=360) MEAN PLATELET VOLUME (BEAKER) fL 9.4-12.4 Unable to report due to (test fjal=356) abnormal Platelet population distribution. NUCLEATED RED BLOOD CELLS 0 /100 WBC 0-0 (BEAKER) (test mvrw=033) NEUTROPHILS RELATIVE PERCENT 49 % (BEAKER) (test shcg=045) LYMPHOCYTES RELATIVE PERCENT 28 % (BEAKER) (test fhxz=889) MONOCYTES RELATIVE PERCENT 19 % (BEAKER) (test waao=914) EOSINOPHILS RELATIVE PERCENT 3 % (BEAKER) (test ykxz=670) BASOPHILS RELATIVE PERCENT 1 % (BEAKER) (test rayz=341) NEUTROPHILS ABSOLUTE COUNT 3.42 K/ L 1.78-5.38 (BEAKER) (test nlvx=201) LYMPHOCYTES ABSOLUTE COUNT 1.94 K/ L 1.32-3.57 (BEAKER) (test tscd=879) MONOCYTES ABSOLUTE COUNT 1.29 K/ L 0.30-0.82 (BEAKER) (test phnb=980) EOSINOPHILS ABSOLUTE COUNT 0.19 K/ L 0.04-0.54 (BEAKER) (test sktz=373) BASOPHILS ABSOLUTE COUNT 0.07 K/ L 0.01-0.08 (BEAKER) (test vtoi=831) IMMATURE GRANULOCYTES-RELATIVE 0 % 0-1 PERCENT (BEAKER) (test yzhu=0411) [id number] 07:34:00 Test Item Value Reference Range Comments PROTIME (BEAKER) (test obiy=458) 16.5 seconds 11.7-14.7 INR (BEAKER) (test wfpc=718) 1.3 <=5.9 PARTIAL THROMBOPLASTIN TIME (BEAKER) (test 34.5 seconds 22.5-36.0 dsyu=394) RECOMMENDED COUMADIN/WARFARIN INR THERAPY RANGESSTANDARD DOSE: 2.0 - 3.0 Includes: PROPHYLAXIS forvenous thrombosis, systemic embolization; TREATMENT for venous thrombosis and/or pulmonary embolus.HIGH RISK: Target INR is 2.5-3.5 for patients with mechanical heart valves.
[2018-11-27] MEDS ORDERED: MORPHINE 2 MG/ML SYR IV PRN (20:13)
[2018-11-27] MEDS ORDERED: ACETAMINOPHEN 500 MG TAB PO ONE (20:13)
[2018-11-27] MEDS ORDERED: ONDANSETRON 4 MG/2 ML VIAL IV PRN (20:13)
[2018-11-27] MEDS ORDERED: ACETAMINOPHEN 500 MG TAB PO PRN (20:13)
[2018-11-27] MEDS ORDERED: FUROSEMIDE 40 MG/4 ML VIAL IV ONE (20:13)
[2018-11-27] MEDS ORDERED: HYDROCORTISONE SUC 100 MG INJ IV ONE (20:13)
[2018-11-27 20:17] LABS: Absolute Lymphocytes (CBC) 1.7 K/uL (0.7-4.9); Absolute Monocytes 1.2 K/uL (0.1-1.3); Absolute Neutrophil 7.6 K/uL (1.8-8.0); Basophils % 0.8 % (0-1.3); Eosinophils % 1.7 % (0-4.4); Lymphocytes % 15.6 % (15.3-44.8); MPV 9.1 fL (7.6-11.3); Monocytes % 11.2 % (3.3-12.3); RBC Red Blood Cell Count 1.45 M/uL (4.33-5.43)
--- NOTE | 2018-11-27 20:41 | ER ---
Nurse's Notes [facility] Name: Stephon Clement Age: 48 yrs Sex: Male : 1970 Arrival Date: 11/27/2018 Time: 19:18 Bed 15 Private MD: Paul Finley Diagnosis: Gastrointestinal hemorrhage, unspecified;Anemia in chronic diseases classified elsewhere Presentation: 11/27 19:26 Presenting complaint: Patient states: he was feeling weak yesterday and his doc ordered bb some blood work and his hgb is 3.8 today so he was sent here. Transition of care: patient was not received from another setting of care. Onset of symptoms was November 27, 2018. Risk Assessment: Do you want to hurt yourself or someone else? Patient reports no desire to harm self or others. Initial Sepsis Screen: Does the patient meet any 2 criteria? No. Patient's initial sepsis screen is negative. Does the patient have a suspected source of infection? No. Patient's initial sepsis screen is negative. Care prior to arrival: None. 19:26 Method Of Arrival: Ambulatory bb 19:26 Acuity: MIA 2 bb Historical: - Allergies: 19:32 Procardia; bb - Home Meds: 19:32 carvedilol oral oral 1 tab 2 times per day [Active]; Plavix 75 mg Oral tab 1 tab once bb daily [Active]; Aspirin Oral [Active]; amlodipine oral [Active]; hydralazine 100 mg Oral tab 1 tab 3 times per day [Active]; losartan 100 mg oral tab 1 tab once daily [Active]; clonidine HCl 0.2 mg Oral tab 1 tab 3 times per day [Active]; amlodipine 10 mg tab 1 tab once daily [Active]; Flomax 0.4 mg Oral cp24 1 cap once daily [Active]; calcium acetate oral oral [Active]; - PMHx: 19:32 Hypertension; ESRD; Dialysis; CAD; GI Bleed; bb - PSHx: 19:32 fistula; Heart stents; bb - Immunization history:: Adult Immunizations up to date, Flu vaccine is up to date. - Social history:: Smoking status: Patient/guardian denies using tobacco. - Ebola Screening: : No symptoms or risks identified at this time. Screenin:00 Abuse screen: Denies threats or abuse. Denies injuries from another. Nutritional rr5 screening: No deficits noted. Tuberculosis screening: No symptoms or risk factors identified. Fall Risk IV access (20 points). Total Forrest Fall Scale indicates No Risk (0-24 pts). Assessment: 20:00 General: Appears in no apparent distress. comfortable, Behavior is calm, cooperative, rr5 appropriate for age. Pain: Denies pain. Neuro: Level of Consciousness is awake, alert, obeys commands, Oriented to person, place, time, situation, Appropriate for age. Cardiovascular: Capillary refill < 3 seconds Patient's skin is warm and dry. Respiratory: Airway is patent Respiratory effort is even, unlabored, Respiratory pattern is regular, symmetrical. GI: Abdomen is round Reports black formed stool. : No signs and/or symptoms were reported regarding the genitourinary system. EENT: No signs and/or symptoms were reported regarding the EENT system. Derm: Skin is intact, Skin temperature is warm AV fistula at left arm. Musculoskeletal: Capillary refill < 3 seconds, Range of motion: intact in all extremities. 21:50 Reassessment: Patient appears in no apparent distress at this time. Patient is alert, rr5 oriented x 3, equal unlabored respirations, skin warm/dry/pink. request sent for blood transfusion.consented. 22:15 Reassessment: Patient appears in no apparent distress at this time. Patient is alert, rr5 oriented x 3, equal unlabored respirations, skin warm/dry/pink. Blood transfusion 1 unit of PRBC started consented and verified. 23:55 Reassessment: Patient appears in no apparent distress at this time. Patient is alert, rr5 oriented x 3, equal unlabored respirations, skin warm/dry/pink. no complaints made. Charge nurse informed Dr. olson for the patient having CPAP at home. dr. olson ordered to hook him on the machine and transfuse 1 unit of PRBC. He will received another 2 unit of PRBC when he will be on dialysis today. 11/28 00:30 Reassessment: Patient appears in no apparent distress at this time. Patient is alert, rr5 oriented x 3, equal unlabored respirations, skin warm/dry/pink. no complaints made while on Blood transfusion Patient denies pain at this time. Patient states feeling better. 01:15 Reassessment: Patient appears in no apparent distress at this time. Patient is alert, rr5 oriented x 3, equal unlabored respirations, skin warm/dry/pink. follow up to RT for the CPAP. blood transfusion completed. Patient denies pain at this time. Vital Signs: 11/27 19:32 BP 181 / 68; Pulse 77; Resp 16 S; Temp 98.3(O); Pulse Ox 98% on R/A; Weight 90.72 kg bb (R); Height 5 ft. 10 in. (177.80 cm) (R); Pain 0/10; 20:58 BP 165 / 75; Pulse 67; Resp 17; Pulse Ox 100% ; Pain 0/10; rr5 21:50 BP 166 / 72; Pulse 68; Resp 17; Temp 98.8; Pulse Ox 100% on R/A; rr5 22:20 BP 168 / 72; Pulse 69; Resp 16; Temp 98; Pulse Ox 100% on R/A; rr5 11/28 01:15 BP 167 / 70; Pulse 72; Resp 14; Temp 98.4; Pulse Ox 100% ; rr5 11/27 19:32 Body Mass Index 28.70 (90.72 kg, 177.80 cm) bb 11/27 22:20 see blood transfusion vital signs form rr5 11/28 01:15 Blood transfusion completed. rr5 ED Course: 11/27 19:18 Patient arrived in ED. am2 19:19 Paul Finley MD is Private Physician. am2 19:27 Triage completed. bb 19:32 Arm band placed on Patient placed in an exam room, on a stretcher, on cardiac tech, bb on pulse oximetry. Family accompanied patient. 19:44 Bernardo Castrejon MD is Attending Physician. gs 19:52 Lion Dutton RN is Primary Nurse. rr5 20:00 Patient has correct armband on for positive identification. Placed in gown. Bed in low rr5 position. Call light in reach. Side rails up X 1. coffee roaster helper on. Pulse ox on. NIBP on. 20:00 Inserted saline lock: 18 gauge in right antecubital area, using aseptic technique. rr5 Blood collected. 20:00 Accessed AV fistula at left arm noted. on left arm precaution Clean \T\ dry. rr5 20:39 May Olson MD is Hospitalizing Provider. gs 20:43 Notified ED physician of a critical lab result(s). potassium 6.1 and creat 14.70. 11/28 02:00 No provider procedures requiring assistance completed. Patient admitted, IV remains in rr5 place. intact, No redness/swelling at site. Administered Medications: No medications were administered Medication: 11/27 22:15 Blood products: PRBCs X 1 unit given. rr5 Outcome: 20:40 Decision to Hospitalize by Provider. 11/28 02:13 Admitted to ER Hold. Please see [facility] for further documentation. rr5 Condition: stable Instructed on the need for admit. 09:34 Patient left the ED. Signatures: Maricel Fair RN RN Niki Marsh RN RN bb Smirch, Shelby, RN RN Ana Maria Barreto Gregory, MD MD gs Roque, Raymond, RN RN rr5
--- NOTE | 2018-11-27 20:41 | EDPHYS ---
Physician Documentation [facility] Name: Stephon Clement Age: 48 yrs Sex: Male : 1970 Arrival Date: 11/27/2018 Time: 19:18 Bed 15 Private MD: Paul Finley ED Physician Bernardo Castrejon HPI: 11/27 20:28 This 48 yrs old Black Male presents to ER via Ambulatory with complaints of Abnormal gs Lab Results. 20:28 weakness, anemia, last transfusion last week, says has black stools. gs Historical: - Allergies: 19:32 Procardia; bb - Home Meds: 19:32 carvedilol oral oral 1 tab 2 times per day [Active]; Plavix 75 mg Oral tab 1 tab once bb daily [Active]; Aspirin Oral [Active]; amlodipine oral [Active]; hydralazine 100 mg Oral tab 1 tab 3 times per day [Active]; losartan 100 mg oral tab 1 tab once daily [Active]; clonidine HCl 0.2 mg Oral tab 1 tab 3 times per day [Active]; amlodipine 10 mg tab 1 tab once daily [Active]; Flomax 0.4 mg Oral cp24 1 cap once daily [Active]; calcium acetate oral oral [Active]; - PMHx: 19:32 Hypertension; ESRD; Dialysis; CAD; GI Bleed; bb - PSHx: 19:32 fistula; Heart stents; bb - Immunization history:: Adult Immunizations up to date, Flu vaccine is up to date. - Social history:: Smoking status: Patient/guardian denies using tobacco. - Ebola Screening: : No symptoms or risks identified at this time. ROS: 20:28 All other systems are negative. gs Exam: 20:28 Head/Face: Normocephalic, atraumatic. Eyes: Pupils equal round and reactive to light, gs extra-ocular motions intact. Lids and lashes normal. Conjunctiva and sclera are non-icteric and not injected. Cornea within normal limits. Periorbital areas with no swelling, redness, or edema. ENT: Nares patent. No nasal discharge, no septal abnormalities noted. Tympanic membranes are normal and external auditory canals are clear. Oropharynx with no redness, swelling, or masses, exudates, or evidence of obstruction, uvula midline. Mucous membranes moist. Neck: Trachea midline, no thyromegaly or masses palpated, and no cervical lymphadenopathy. Supple, full range of motion without nuchal rigidity, or vertebral point tenderness. No Meningismus. Chest/axilla: Normal chest wall appearance and motion. Nontender with no deformity. No lesions are appreciated. Cardiovascular: Regular rate and rhythm with a normal S1 and S2. No gallops, murmurs, or rubs. Normal PMI, no JVD. No pulse deficits. Respiratory: Lungs have equal breath sounds bilaterally, clear to auscultation and percussion. No rales, rhonchi or wheezes noted. No increased work of breathing, no retractions or nasal flaring. Back: No spinal tenderness. No costovertebral tenderness. Full range of motion. Skin: Warm, dry with normal turgor. Normal color with no rashes, no lesions, and no evidence of cellulitis. MS/ Extremity: Pulses equal, no cyanosis. Neurovascular intact. Full, normal range of motion. Neuro: Awake and alert, GCS 15, oriented to person, place, time, and situation. Cranial nerves II-XII grossly intact. Motor strength 5/5 in all extremities. Sensory grossly intact. Cerebellar exam normal. Normal gait. 20:28 Constitutional: The patient appears alert, awake. 20:28 Abdomen/GI: Inspection: distension, that is mild, Palpation: abdomen is soft and non-tender, in all quadrants. Vital Signs: 19:32 BP 181 / 68; Pulse 77; Resp 16 S; Temp 98.3(O); Pulse Ox 98% on R/A; Weight 90.72 kg bb (R); Height 5 ft. 10 in. (177.80 cm) (R); Pain 0/10; 20:58 BP 165 / 75; Pulse 67; Resp 17; Pulse Ox 100% ; Pain 0/10; rr5 21:50 BP 166 / 72; Pulse 68; Resp 17; Temp 98.8; Pulse Ox 100% on R/A; rr5 22:20 BP 168 / 72; Pulse 69; Resp 16; Temp 98; Pulse Ox 100% on R/A; rr5 11/28 01:15 BP 167 / 70; Pulse 72; Resp 14; Temp 98.4; Pulse Ox 100% ; rr5 11/27 19:32 Body Mass Index 28.70 (90.72 kg, 177.80 cm) bb 11/27 22:20 see blood transfusion vital signs form rr5 11/28 01:15 Blood transfusion completed. rr5 MDM: 11/27 19:54 Patient medically screened. gs 20:28 Differential Diagnosis anemia,acute blood loss, gi bleed. Data reviewed: vital signs, gs nurses notes. Counseling: I had a detailed discussion with the patient and/or guardian regarding: the historical points, exam findings, and any diagnostic results supporting the discharge/admit diagnosis, the need for further work-up and treatment in the hospital. Response to treatment: the patient's symptoms have markedly improved after treatment. 11/27 19:45 Order name: CBC with Diff gs 11/27 19:45 Order name: Basic Metabolic Panel gs 11/27 19:45 Order name: T\T\S gs 11/27 20:22 Order name: Packed RBC Leukored -1 EDMS 11/27 20:27 Order name: Basic Metabolic Panel EDMS 11/27 20:27 Order name: Basic Metabolic Panel EDMS 11/27 20:27 Order name: CBC with Automated Diff EDMS 11/27 20:27 Order name: CBC with Automated Diff EDMS 11/27 20:27 Order name: Hematocrit EDMS 11/27 20:28 Order name: Hematocrit EDMS 11/27 20:28 Order name: Hematocrit EDMS 11/27 20:28 Order name: Hemoglobin EDMS 11/27 20:28 Order name: Hemoglobin EDMS 11/27 20:27 Order name: CONS Pharmacy Consult EDMS 11/27 20:27 Order name: CONS Physician Consult EDMS 11/27 20:27 Order name: CONS Physician Consult EDMS 11/27 20:27 Order name: Heart Healthy EDMS 11/27 20:27 Order name: EKG Electrocardiogram EDMS 11/27 20:27 Order name: EKG Electrocardiogram EDMS 11/27 20:27 Order name: EKG Electrocardiogram EDMS 11/27 20:28 Order name: Hemoglobin EDMS 11/27 20:28 Order name: Protime (+INR) EDMS 11/27 20:28 Order name: Protime (+INR) EDMS 11/27 20:28 Order name: PTT, Activated Partial Thromb EDMS 11/27 20:28 Order name: PTT, Activated Partial Thromb EDMS 11/27 20:28 Order name: BB Add On EDMS 11/27 20:41 Order name: Occult Blood 11/27 20:43 Order name: CBC Smear Scan [facility] 11/27 21:17 Order name: ABO/RH no charge [facility] 11/27 20:27 Order name: EKG Electrocardiogram [facility] 11/27 20:27 Order name: EKG Electrocardiogram [facility] 11/27 20:27 Order name: EKG Electrocardiogram [facility] 11/27 20:27 Order name: EKG Electrocardiogram [facility] 11/27 20:27 Order name: EKG Electrocardiogram [facility] 11/27 20:27 Order name: EKG Electrocardiogram [facility] 11/27 20:27 Order name: EKG Electrocardiogram [facility] Administered Medications: No medications were administered Disposition: 11/27/18 20:40 Hospitalization ordered by May Lawson for Inpatient Admission. Preliminary diagnosis are Gastrointestinal hemorrhage, unspecified, Anemia in chronic diseases classified elsewhere. - Bed requested for Intensive Care Unit. - Status is Inpatient Admission. ss - Condition is Stable. - Problem is an ongoing problem. - Symptoms are unchanged. UTI on Admission? No Signatures: Dispatcher [employer] [facility] Miryam Washington RN RN kl Ballard, Brenda, RN RN bb Smirch, Shelby, RN RN ss Starr, Gregory, MD MD gs Corrections: (The following items were deleted from the chart) 21:24 20:40 Hospitalization Ordered by May Lawson MD for Inpatient Admission. Preliminary kl diagnosis is Gastrointestinal hemorrhage, unspecified; Anemia in chronic diseases classified elsewhere. Bed requested for Intensive Care Unit. Status is Inpatient Admission. Condition is Stable. Problem is an ongoing problem. Symptoms are unchanged. UTI on Admission? No. gs 11/28 06:48 11/27 21:24 11/27/2018 20:40 Hospitalization Ordered by May Lawson MD for Inpatient kl Admission. Preliminary diagnosis is Gastrointestinal hemorrhage, unspecified; Anemia in chronic diseases classified elsewhere. Bed requested for [facility] ER HOLD. Status is Inpatient Admission. Condition is Stable. Problem is an ongoing problem. Symptoms are unchanged. UTI on Admission? No. kl 11/28 09:34 06:48 11/27/2018 20:40 Hospitalization Ordered by May Lawson MD for Inpatient ss Admission. Preliminary diagnosis is Gastrointestinal hemorrhage, unspecified; Anemia in chronic diseases classified elsewhere. Bed requested for Intensive Care Unit. Status is Inpatient Admission. Condition is Stable. Problem is an ongoing problem. Symptoms are unchanged. UTI on Admission? No. kl
[2018-11-27 20:44] LABS: Potassium 6.1 mmol/L (3.5-5.1)
[2018-11-27] MEDS: PANTOPRAZOLE INJ 80 MG in NA CHLORIDE 0.9% 250 ML IV SCH (21:00)
[2018-11-27] MEDS ORDERED: NA CHLORIDE 0.9% 250 ML IV SCH (21:00)
[2018-11-27 21:06] LABS: Urine White Blood Cell Casts OK
[2018-11-27 21:07] LABS: Anisocytosis 3+; Blood Morphology Comment NOTED (NOT SEEN); Hypochromasia 3+; Platelet Estimate ADEQ; Polychromasia 1+
[2018-11-27] MEDS ORDERED: NA CHLORIDE 0.9% 100 ML IV ONE (21:35)
[2018-11-28] MEDS ORDERED: FUROSEMIDE 20 MG/ 2ML VIAL ONE (02:42)
[2018-11-28] MEDS ORDERED: HYDROCORTISONE SUC 100 MG INJ ONE (02:42)
[2018-11-28] MEDS ORDERED: FUROSEMIDE 40 MG/4 ML VIAL ONE (02:43)
[2018-11-28] MEDS ORDERED: PANTOPRAZOLE 40 MG INJ ONE (02:43)
[2018-11-28] MEDS ORDERED: ACETAMINOPHEN 500 MG TAB ONE (02:43)
[2018-11-28] MEDS ORDERED: NA CHLORIDE 0.9% 250 ML ONE (02:43)
[2018-11-28 04:55] VITALS: O2SAT 99
[2018-11-28 05:15] LABS: Absolute Lymphocytes (CBC) 0.9 K/uL (0.7-4.9); Absolute Monocytes 0.4 K/uL (0.1-1.3); Absolute Neutrophil 7.1 K/uL (1.8-8.0); Lymphocytes % 10.5 % (15.3-44.8); MPV 9.5 fL (7.6-11.3); Monocytes % 4.5 % (3.3-12.3); RBC Red Blood Cell Count 1.62 M/uL (4.33-5.43)
[2018-11-28 05:17] LABS: Hematocrit 13.4 % (39.6-49.0)
[2018-11-28 05:19] LABS: Protime INR 1.14
--- NOTE | 2018-11-28 05:19 | P.HP ---
Certification for Inpatient Patient admitted to: Inpatient With expected LOS: >2 Midnights Patient will require the following post-hospital care: None Practitioner: I am a practitioner with admitting privileges, knowledge of patient current condition, hospital course, and medical plan of care. Services: Services provided to patient in accordance with Admission requirements found in Title 42 Section 412.3 of the Code of Federal Regulations Patient History Date of Service: 11/27/18 Reason for admission: Anemia; acute blood loss; end-stage renal disease; hyperkalemia; uremia History of Present Illness: Patient is a 48-year-old gentleman who came into the hospital with weakness. 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 At that time, his hemoglobin was 3.8. Repeat in the emergency room was 3.9. He will be given 1 unit of packed red blood cells now. Will go ahead and order 2 units during hemodialysis. Consul nephrology as well. Patient does state that he has had some melanotic stools. Will go ahead and started on Protonix as well. Hemodynamically he is stable. Will go ahead and give him Lasix after the blood transfusion. Gastroenterology will be consulted as well. Patient is uremic and this may be related to GI blood loss. However he is hypertensive and will monitor him closely in the ICU. If his blood count remained stable then he will be able to go to the general medical floor. Allergies nifedipine [From Procardia] Adverse Reaction (Verified 11/27/18 23:46) Itching/Hives/Rash - Past Medical/Surgical History Diabetic: No -: hypertension -: ESRD -: Dialysis -: CAD -: GI Bleed -: AV fistula left arm -: Heart stent - Family History Father Family History: Reviewed- Non-Contributory - Social History Smoking Status: Never smoker Alcohol use: No CD- Drugs: No Place of Residence: Home Review of Systems 10-point ROS is otherwise unremarkable Physical Examination - Vital Signs Temperature: 98.2 F Blood Pressure: 170/89 Pulse: 76 Respirations: 15 Pulse Ox (%): 99 - Physical Exam General: Alert, In no apparent distress, Oriented x3 HEENT: Atraumatic, PERRLA, Mucous membr. moist/pink, EOMI, Sclerae nonicteric Neck: Supple, 2+ carotid pulse no bruit, No LAD, Without JVD or thyroid abnormality Respiratory: Clear to auscultation bilaterally, Normal air movement Cardiovascular: Regular rate/rhythm, Normal S1 S2, No murmurs Gastrointestinal: Normal bowel sounds, Soft and benign, Non-distended, No tenderness Musculoskeletal: No clubbing, No tenderness Integumentary: No rashes Neurological: Normal gait, Normal speech, Normal strength at 5/5 x4 extr, Normal tone, Sensation intact, Cranial nerves 3-12 intact, Normal affect Lymphatics: No axilla or inguinal lymphadenopathy - Studies Laboratory Data (last 24 hrs) 11/27/18 20:00: Sodium 136, Potassium 6.1 H*, BUN 155 H, Creatinine 14.70 H*, Glucose 91 11/27/18 20:00: WBC 10.7, Hgb 3.9 L*, Hct 12.0 L*, Plt Count 171 Assessment & Plan - Problems (Diagnosis) (1) Acute blood loss anemia Current Visit: Yes Status: Acute (2) Melena Current Visit: Yes Status: Acute (3) End stage renal disease Current Visit: Yes Status: Acute (4) Uremia Current Visit: Yes Status: Acute (5) Hyperkalemia Current Visit: Yes Status: Acute (6) Hypertension Current Visit: Yes Status: Acute - Plan Plan: 1. Continue with IV hydration and PPI 2. Continue with blood transfusion and nephrology consultation for additional transfusion during dialysis 3. Continue with diuresing after blood transfusion as long as blood pressure is stable 4. NPO 5. GI consultation 6. Serial H&H, and we will monitor LFTs and lipase along with electrolytes. 7. GI and DVT prophylaxis Discharge Plan: Home Plan to discharge in: Greater than 2 days - Advance Directives Does patient have a Living Will: No Does patient have a Durable POA for Healthcare: No - Code Status/Comfort Care Code Status Assessed: Yes Code Status: Full Code Critical Care: Yes Time Spent Managing PTS Care (In Minutes): 50
[2018-11-28 05:43] LABS: Potassium 5.5 mmol/L (3.5-5.1)
[2018-11-28] MEDS: FUROSEMIDE 20 MG/ 2ML VIAL IV SCH ×2 (06:00→09:00)
--- NOTE | 2018-11-28 09:54 | EKG ---
Test Date: 2018-11-27 Test Time: 22:36:31 Welfare Aide: RR MEASUREMENT RESULTS: Intervals: Rate: 67 [place]: 164 QRSD: 112 QT: 404 QTc: 426 [place]: P: 62 [place]: 164 QRS: 56 T: 45 INTERPRETIVE STATEMENTS: Normal sinus rhythm Normal ECG No previous ECG available for comparison Electronically Signed On 11-28-18 09:54:04 FAMILY PRACTITIONER by Damien Mcclain
[2018-11-28] MEDS: PANTOPRAZOLE INJ 80 MG in NA CHLORIDE 0.9% 250 ML IV SCH ×2 (09:56→19:48)
[2018-11-28 10:09] LABS: Hematocrit 13.9 % (39.6-49.0)
[2018-11-28] MEDS ORDERED: DESMOPRESSIN 4 MCG/ML AMP IV ONE (10:38)
[2018-11-28] MEDS ORDERED: HYDRALAZINE HCL 20 MG/ML VIAL IV ONE (10:39)
[2018-11-28] MEDS ORDERED: DESMOPRESSIN 20 MCG in NA CHLORIDE 0.9% 50 ML IV ONE (11:00)
--- NOTE | 2018-11-28 14:40 | P.PN ---
Subjective Date of Service: 11/28/18 Chief Complaint: Anemia; acute blood loss; end-stage renal disease; hyperkalemia ; uremia Physical Examination - Vital Signs Temperature: 98.2 F Blood Pressure: 153/58 Pulse: 70 Respirations: 15 Pulse Ox (%): 99 - Studies Laboratory Data (last 24 hrs) 11/27/18 20:00: Sodium 136, Potassium 6.1 H*, BUN 155 H, Creatinine 14.70 H*, Glucose 91 11/27/18 20:00: WBC 10.7, Hgb 3.9 L*, Hct 12.0 L*, Plt Count 171 Assessment And Plan - Plan (1) Acute blood loss anemia (2) Melena (3) End stage renal disease (4) Uremia (5) Hyperkalemia (6) Hypertension Plan: 1. Continue with IV hydration and PPI 2. Continue with blood transfusion and nephrology consultation for additional transfusion during dialysis 3. Continue with diuresing after blood transfusion as long as blood pressure is stable 4. NPO 5. GI consultation 6. Serial H&H, and we will monitor LFTs and lipase along with electrolytes. 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 Transfer initiated to [facility] for continuity of care.
--- NOTE | 2018-11-28 15:55 | CON ---
Date of Consultation: 11/28/2018 Additional Consulting Physician: Dr. Means. Reason For Consultation: Elevated BUN and creatinine, hyperkalemia, hypertension. History Of Present Illness: This is a pleasant 48-year-old gentleman, well known to me from the dial ysis, with significant past medical history of end-stage renal disease secondary to diabetes nephropa thy; hypertension; hyperlipidemia; coronary artery disease, status post PTCA recently. The patient c amy to the hospital as I referred him from home. Apparently, the patient a couple of weeks has been admitted to [facility] because of symptomatic anemia. There, received 4 units of blood transf usion and discharged. The patient has been working hard, continues to have melena with abdominal arpit n. No nausea or vomiting. Started feeling weak. For that reason, we directed him to do outpatient lab, found to have a hemoglobin of 3.8. For that reason, we asked the patient to come back to the em ergency room. Apparently, the patient used to be on aspirin and Plavix, and after the stent was plac ed, was placed on Brilinta, complicated with bleed. Brilinta was discontinued, but apparently by mis take re-prescribed. The patient, as I mentioned, continues to have melena. No fever. No chills. T he patient, upon arrived to the ER, stable hemodynamically. Lab show hyperkalemia with potassium 6.1 . For that reason, he has been admitted. Over the night, the patient received Lasix, received treat ment for hyperkalemia. The patient is feeling well. No chest pain. Past Medical History: Includes: 1.Coronary artery disease, status post PTCA back in the late October with 3 stents. 2.Hyperlipidemia. 3.End-stage renal disease, on hemodialysis Monday, Monday, Monday at [facility] through left arm AV fistula. Family History: Positive for hypertension. Social History: Denies smoking. Denies drinking. Denies drugs abuse. Review of Systems: Head and Neck: No red eye. No ear pain. GI: Has melena. : No polyuria. No dysuria. No hematuria. The patient is anuric. HERBARIUM CURATOR: Not applicable. Respiratory: No shortness of breath. Cardiovascular: No chest pain. Endocrine: No polydipsia. Skin: No rash. Neuro: No new neuropathy. Musculoskeletal: Generalized fatigue. Medications: Home medications include Flomax, losartan 100, hydralazine 100 t.i.d., Epogen, Plavix, clonidine, carvedilol, PhosLo, amlodipine. Current medications in the hospital include Lasix, morphine, pantoprazole, and Tylenol. The patient received 1 unit of blood transfusion. Physical Examination: Vital Signs: When I saw the patient, blood pressure 153/58, pulse of 70, afebrile. Chest: Clear to auscultation. Heart: S1, S2. Regular. Systolic murmur. Abdomen: Soft, nontender. Extremities: No edema. Laboratory Data: On admission, H and H of 3.9/12. Currently, WBC 8.7, H and H 4.5/13.4, platelet 15 8. Sodium 138, potassium 5.5, bicarb 20, BUN 167, creatinine 15, calcium 8.5. Assessment And Plan: 1.End-stage renal disease with severe symptomatic anemia, mostly secondary to gastrointestinal bleed . The patient had severe disproportion in BUN and creatinine, mostly secondary to missing the dialys is and because of gastrointestinal bleed, I going to do dialysis today and tomorrow and we will trans fuse the patient 2 packed RBC. Given that the patient is active on the transplant list, we will try to transfuse eradicated/reduced WBC and red blood cell. 2.Hypertension, not controlled. I am going to go ahead and give the patient hydralazine. We will f ollow up with blood pressure post-dialysis. 3.Anemia and gastrointestinal bleed. As above, continue pantoprazole. The patient is going to rece wilton a transfusion. I am going to give the patient DDAVP. We will start the patient back on Epogen, and we will follow up. 4.Coronary artery disease. Given the active bleed, we will hold on Brilinta. We will consider cont inue aspirin and Plavix. Follow up with GI. 5.Gastrointestinal bleed. As above, we will follow up with GI. Continue PPI. Thank you, Dr. Means, for allowing us to participate in the care of your patient. SHINE/PAULY Voice ID: [id number] Report ID: [id number]
[2018-11-28] MEDS: EPOETIN ALFA 10,000 UNIT/ML VIAL IV SCH (17:00)
[2018-11-28] MEDS: HYDRALAZINE HCL 25 MG TABLET PO SCH (17:35)
[2018-11-28] MEDS: CARVEDILOL 25 MG TAB PO SCH (18:35)
[2018-11-28 19:09] LABS: Hematocrit 18.4 % (39.6-49.0)
[2018-11-28] MEDS: cloNIDine HCl 0.1 MG TAB PO SCH (19:47)
[2018-11-29] MEDS: HYDRALAZINE HCL 25 MG TABLET PO SCH ×4 (01:58→23:31)
[2018-11-29] MEDS: PANTOPRAZOLE INJ 80 MG in NA CHLORIDE 0.9% 250 ML IV SCH ×3 (03:00→22:56)
[2018-11-29 05:59] LABS: Albumin 3.3 g/dL (3.4-5.0); Potassium 4.8 mmol/L (3.5-5.1)
[2018-11-29] MEDS: CARVEDILOL 25 MG TAB PO SCH ×2 (08:45→18:00)
[2018-11-29] MEDS: cloNIDine HCl 0.1 MG TAB PO SCH (08:46)
[2018-11-29] MEDS: AMLODIPINE 10 MG TAB PO SCH (09:00)
[2018-11-29] MEDS: LOSARTAN POTASSIUM 50 MG TABLET PO SCH (09:00)
[2018-11-29] MEDS: CLONIDINE HCL 0.3 MG TAB PO SCH ×2 (13:37→21:00)
--- NOTE | 2018-11-29 13:50 | PN ---
Date of Progress Note: 11/29/2018 NEPHROLOGY FOLLOWUP Subjective: The patient is doing well, status post transfusion yesterday, blood pressure is still el evated. Physical Examination: Vital Signs: When I saw the patient, blood pressure 141/79, pulse of 65. The patient had dialysis y esterday, we managed to remove 1800. Chest: Clear to auscultation. Heart: S1 and S2 regular. Abdomen: Soft, nontender. Extremities: No edema. The patient received 3 units of packed RBC. Laboratory Data: H and H of 6.2 and 18.4. Sodium 140, potassium 4.8, bicarb 22, BUN 122, creatinine 12.6, calcium 8.4, phosphorus 5, and albumin 3. Current Medications: The patient on it includes, 1.Epogen. 2.Amlodipine. 3.Carvedilol. 4.Clonidine 0.2 t.i.d. 5.Hydralazine 100 t.i.d. 6.Losartan. 7.Pantoprazole. Assessment And Plan: 1.End-stage renal disease. Still severe elevation in BUN secondary to the gastrointestinal bleed an d secondary to missing dialysis. I am going to do another session of dialysis today and we will vianca tor the patient. We will transfuse 2 units of packed RBC on the dialysis also today, it is going to be reduced WBC as the patient is active on the transplant list. 2.Hypertension, not controlled. Increase clonidine. We will follow up blood pressure after dialysi s. 3.Gastrointestinal bleed, seen by GI. Continue conservative treatment. Plan for workup as outpatie nt. The patient is status post DDAVP, status post transfusion. We will do another transfusion today and we will follow up. If hemoglobin stays stable by yesterday with appropriate rise with the trans fusion, the patient is going to be cleared from the renal standpoint for discharge planning. SHINE/PAULY Voice ID: [id number] Report ID: [id number]
[2018-11-29] MEDS ORDERED: NA CHLORIDE 0.9% 250 ML ONE ×2 (16:44→17:57)
--- NOTE | 2018-11-29 17:03 | P.PN ---
Subjective Date of Service: 11/29/18 Chief Complaint: Anemia; acute blood loss; end-stage renal disease; hyperkalemia ; uremia Subjective: No C/O voiced, Improving Patient seen and examined at bedside. No family at bedside. Chart reviewed and case discussed with nursing staff. Review of Systems 10-point ROS is otherwise unremarkable Physical Examination - Vital Signs Temperature: 99 F Blood Pressure: 190/83 Pulse: 65 Respirations: 20 Pulse Ox (%): 99 - Physical Exam General: Alert, In no apparent distress, Oriented x3 HEENT: Atraumatic, PERRLA, EOMI Neck: Supple, JVD not distended Respiratory: Clear to auscultation bilaterally, Normal air movement Cardiovascular: Regular rate/rhythm, Normal S1 S2 Gastrointestinal: Normal bowel sounds, No tenderness Musculoskeletal: No tenderness Integumentary: No rashes Neurological: Normal speech, Normal tone, Normal affect Lymphatics: No axilla or inguinal lymphadenopathy Assessment And Plan - Plan (1) Acute blood loss anemia (2) Melena (3) End stage renal disease (4) Uremia (5) Hyperkalemia (6) Hypertension Plan: 1. Continue with IV hydration and PPI 2. Patient pending dialysis today. He will receive 2 more units of PRBCs with dialysis today. He is now at a total of 5 units of PRBCs throughout the stay. 3. GI consultation. Recommendations appreciated. Case discussed with Dr. Wallace. Also Discussed in detail with patient regarding a EGD/further evaluation for acute anemia. Patient declined persistently. He stated that he already has a chain saw operator that he is going to follow up with next week. He would not like any workup done here. He stated that his associate technician told him that he could go home after dialysis if his blood work remained stable. Explained the risks to patient in declining procedure at this time. Patient stated that he understands the risks but still declines the procedure at this time. He would like to go home as he is feeling much better. 5. Serial H&H. Continue to monitor. Per patient, he is on the kidney transplant list at [facility] and would like to be transferred there because all his physician are over there , including his wheel truer. Transfer initiated to [facility] for continuity of care. Patient was accepted at [facility], he had a bed available. At the time of transport, patient declined transfer stating that he is feeling much better and he was like this go home from here. He was explained that if he declined transfer at this time, he would lose his bed and the process would have to start all over if we do need to transfer down the line. Patient stated that he understood, and declined transfer still. Time Spent Managing PTS Care (In Minutes): 45
[2018-11-29] MEDS: EPOETIN ALFA 10,000 UNIT/ML VIAL IV SCH (18:20)
[2018-11-29 22:00] LABS: Hematocrit 23.4 % (39.6-49.0)
[2018-11-30] MEDS: CARVEDILOL 25 MG TAB PO SCH (05:20)
[2018-11-30 05:35] VITALS: BMI 29.5
[2018-11-30 05:38] LABS: Albumin 3.2 g/dL (3.4-5.0); Phosphorus 5.3 mg/dL (2.5-4.9); Potassium 4.4 mmol/L (3.5-5.1)
[2018-11-30] MEDS: AMLODIPINE 10 MG TAB PO SCH (08:20)
[2018-11-30] MEDS: HYDRALAZINE HCL 25 MG TABLET PO SCH (08:20)
[2018-11-30] MEDS: CLONIDINE HCL 0.3 MG TAB PO SCH (08:21)
[2018-11-30] MEDS: LOSARTAN POTASSIUM 50 MG TABLET PO SCH (08:21)
[2018-11-30 08:47] LABS: Hematocrit 24.9 % (39.6-49.0)
[2018-11-30] MEDS: PANTOPRAZOLE INJ 80 MG in NA CHLORIDE 0.9% 250 ML IV SCH (09:18)
--- NOTE | 2018-11-30 10:02 | P.PN ---
Subjective Date of Service: 11/30/18 Chief Complaint: Anemia; acute blood loss; end-stage renal disease; hyperkalemia ; uremia Subjective: Improving HD yesterday BP was high in the morning , now started on BP meds HB appropriately increased after PRBC cleared for discharge from nephrology point of view Physical Examination - Vital Signs Temperature: 99.3 F Blood Pressure: 220/90 Pulse: 64 Respirations: 18 Pulse Ox (%): 94 - Physical Exam General: In no apparent distress Neck: Supple, Without JVD or thyroid abnormality Respiratory: Clear to auscultation bilaterally, Normal air movement Cardiovascular: No edema, Regular rate/rhythm, Normal S1 S2 Gastrointestinal: Soft and benign, Distended Assessment And Plan - Current Problems (Diagnosis) (1) Acute blood loss anemia Onset Date: 11/28/18 Current Visit: Yes Status: Acute (2) End stage renal disease Onset Date: 11/28/18 Current Visit: Yes Status: Chronic - Plan End-stage renal disease. HD yesterday cleared for discharge from nephrology point of view Hypertension, was still high this morning, but improved this morning home meds resumed acute anemia likely due to GI bleeding seen by GI Hb stable now
[2018-11-30 12:32] VITALS: BP 202/94; TEMP 98.6
--- NOTE | 2018-12-01 16:38 | P.DS ---
Admission Date: 11/27/18 Discharge Date: 11/30/18 Disposition: ROUTINE DISCHARGE Discharge Condition: GOOD Reason for Admission: Anemia; acute blood loss; end-stage renal disease; hyperkalemia; uremia Consultations: Nephrology Gastroenterology Procedures: Dialysis Brief History of Present Illness: Patient is a 48-year-old gentleman who came into the hospital with weakness. He states that he had labs done by his tool and die maker apprentice and was found to have anemia. At that time, his hemoglobin was 3.8. Repeat in the emergency room was 3.9. He will be given 1 unit of packed red blood cells now. Will go ahead and order 2 units during hemodialysis. Consul nephrology as well. Patient does state that he has had some melanotic stools. Will go ahead and started on Protonix as well. Hemodynamically he is stable. Will go ahead and give him Lasix after the blood transfusion. Gastroenterology will be consulted as well. Patient is uremic and this may be related to GI blood loss. However he is hypertensive and will monitor him closely in the ICU. If his blood count remained stable then he will be able to go to the general medical floor. Hospital Course: (1) Acute blood loss anemia (2) Melena (3) End stage renal disease (4) Uremia (5) Hyperkalemia (6) Hypertension Patient was admitted to the ICU. He received a total of 5 units of PRBCs throughout the stay. GI was consulted for the GI bleed and acute anemia. Per patient, he is on the kidney transplant list at [facility] and would like to be transferred there because all his physician were over there, including his complaint investigator. Transfer was initiated to [facility] for continuity of care. Patient was accepted at [facility], he had a bed available. At the time of transport, patient declined transfer stating that he is feeling much better and he would like to go home from here. He was explained that if he declined transfer at this time, he would lose his bed and the process would have to start all over if we do need to transfer down the line. Patient stated that he understood, and declined transfer still. An EGD was planned. Patient declined persistently. He stated that he already has a uppers edge burnisher that he is going to follow up with next week. He would not like any workup done here. He stated that his tool and die maker apprentice told him that he could go home after dialysis if his blood work remained stable. Explained the risks to patient in declining procedure at this time. Patient stated that he understands the risks but still declines the procedure at this time. He would like to go home as he is feeling much better. He underwent dialysis. His hemoglobin went up to as high as 8.7, he remained hemodynamically stable, he was alert oriented x3, denying any symptoms at all. He stated he felt really well, wanted to go to dinner with his for Brandy's Day and therefore he would like to go home. It was also noted that he was sitting in bed eating salty chips despite his renal diet that was ordered. He was counseled on compliance with diet, medications etc. He stated that he understood and he will follow up with his regular doctors next week. Vital Signs/Physical Exam: Temp Pulse Resp BP Pulse Ox 98.6 F 67 18 202/94 H 97 11/30/18 12:00 11/30/18 12:00 11/30/18 12:00 11/30/18 12:00 11/30/18 12:00 General: Alert, In no apparent distress, Oriented x3 HEENT: Atraumatic, PERRLA, EOMI Neck: Supple, JVD not distended Respiratory: Clear to auscultation bilaterally, Normal air movement Cardiovascular: Regular rate/rhythm, Normal S1 S2 Gastrointestinal: Normal bowel sounds, No tenderness Musculoskeletal: No tenderness Integumentary: No rashes Neurological: Normal speech, Normal tone, Normal affect Lymphatics: No axilla or inguinal lymphadenopathy Laboratory Data at Discharge: WBC 8.7 K/uL (4.3-10.9) D 11/28/18 05:00 Hgb 8.7 g/dL (13.6-17.9) L 11/30/18 08:36 Hct 24.9 % (39.6-49.0) L 11/30/18 08:36 Plt Count 158 K/uL (152-406) 11/28/18 05:00 PT 13.4 SECONDS (9.5-12.5) H 11/28/18 05:00 INR 1.14 11/28/18 05:00 APTT 33.0 SECONDS (24.3-36.9) 11/28/18 05:00 Sodium 139 mmol/L (136-145) 11/30/18 04:44 Potassium 4.4 mmol/L (3.5-5.1) 11/30/18 04:44 BUN 91 mg/dL (7-18) H D 11/30/18 04:44 Creatinine 11.20 mg/dL (0.55-1.3) H* D 11/30/18 04:44 Glucose 112 mg/dL (74-106) H 11/30/18 04:44 Phosphorus 5.3 mg/dL (2.5-4.9) H 11/30/18 04:44 Home Medications: Amlodipine [Norvasc*] 10 mg PO DAILY 11/28/18 Calcium Acetate 2,001 mg PO TID 11/28/18 Carvedilol 25 mg PO BID 11/28/18 Clonidine HCl [Catapres*] 0.2 mg PO TID 11/28/18 Clopidogrel Bisulfate [Plavix] 75 mg PO DAILY 11/28/18 Epoetin [Procrit*] 10,000 unit SQ M,W,F 11/28/18 Hydralazine HCl [Apresoline] 100 mg PO Q8H 11/28/18 Losartan Potassium [Cozaar] 100 mg PO DAILY 11/28/18 Tamsulosin [Flomax*] 0.4 mg PO DAILY 11/28/18 Patient Discharge Instructions: Please follow up with the primary care physician in 1 week. Please follow up with his GI doctor for further evaluation. Please return to the emergency room for worsening symptoms. Diet: Renal Activity: Ad gilma Time spent managing pt's care (in minutes): 55
== END 2018-11-30 12:40 | disposition home or self-care (01) | DRG 811 ==
LOC: ER 19:17 → ERHOLD 20:58 → 3RD-ICU 11-28 08:30 → 2ND 11-29 10:20
PROVIDERS: ADMIT Hospitalist; ATTEND Family Medicine
PROC: 30233N1 Transfusion of Nonautologous Red Blood Cells into Peripheral Vein, Percutaneous Approach (ICD-10-PCS; principal; 2018-11-27)
PROC: 5A1D70Z Performance of Urinary Filtration, Intermittent, Less than 6 Hours Per Day (ICD-10-PCS; 2018-11-28)
PROC: 5A1D70Z Performance of Urinary Filtration, Intermittent, Less than 6 Hours Per Day (ICD-10-PCS; 2018-11-29)
DX: D62 Acute posthemorrhagic anemia (principal); N18.6 End stage renal disease; I12.0 Hypertensive chronic kidney disease with stage 5 chronic kidney disease or end stage renal disease; K92.1 Melena; E87.5 Hyperkalemia; Z99.2 Dependence on renal dialysis; Z91.11 Patient's noncompliance with dietary regimen; I25.10 Atherosclerotic heart disease of native coronary artery without angina pectoris; Z95.5 Presence of coronary angioplasty implant and graft; E11.22 Type 2 diabetes mellitus with diabetic chronic kidney disease; Z79.84 Long term (current) use of oral hypoglycemic drugs; E11.21 Type 2 diabetes mellitus with diabetic nephropathy; E78.5 Hyperlipidemia, unspecified
CPT/HCPCS: 36415; 36430; 80048; 80069; 85014; 85018; 85025; 85610; 85730; 86850; 86900; 86901; 90935; 93005; 94660; 99285; C9113; J0360; J1720; J1940; J2270; J2597; P9016; P9040; Q4081